=== PATIENT | male | born 1935 | race Caucasian/White ===

== ENCOUNTER 2021-06-18 15:03 | Emergency (ER) | payer OTHER, SELFPAY ==
--- NOTE | 2021-06-18 15:31 | DI.CT.S_ITS ---
PROCEDURE: CT HEAD/BRAIN WO CON INDICATIONS: confusion TECHNIQUE: Noncontrast 4.5 mm thick angled axial sections acquired from the foramen magnum to the vertex, with coronal and sagittal reformats. For radiation dose reduction, the following was used: automated exposure control, adjustment of mA and/or kV according to patient size. COMPARISON: None. FINDINGS: Image quality: Excellent. CSF spaces: Basal cisterns are patent. No extra-axial fluid collections. The ventricles are symmetric in size and shape. Brain: No acute intracranial hemorrhage or mass effect. A moderately-sized area of chronic encephalomalacia is seen in the right frontal lobe. Small areas of chronic encephalomalacia are seen in the right parietal and right occipital lobe posteriorly. There is cerebral volume loss for age, with resultant ventricular and sulcal prominence. There are periventricular and deep white matter chronic small vessel ischemic changes. There is intracranial internal carotid artery atherosclerosis. Skull and face: Calvarium and visualized facial bones appear intact, without suspicious lesions. Sinuses: Visualized sinuses and mastoids are clear. IMPRESSION: 1. No acute intracranial abnormality. 2. 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 3. Chronic microvascular ischemic changes and diffuse cerebral and cerebellar volume loss. Dictated by: Iván Grullon M.D. on 06/18/2021 at 15:48 Approved by: Iván Grullon M.D. on 06/18/2021 at 15:52
--- NOTE | 2021-06-18 17:17 | DI.RAD.S_ITS ---
PROCEDURE: XR CHEST 1V INDICATIONS: altered mental status TECHNIQUE: One view of the chest was acquired. COMPARISON: [facility], CT, CT HEAD/BRAIN WO CON, 06/18/2021, 15:38. FINDINGS: Surgical changes and devices: None. Lungs and pleura: Lungs are clear. No pleural effusions or pneumothorax. Mediastinum: There is moderate cardiomegaly. Atherosclerotic calcification of the aortic arch is noted. Bones and chest wall: No suspicious bony lesions. Overlying soft tissues appear unremarkable. IMPRESSION: Moderate cardiomegaly. Clear lungs. Dictated by: Anton Cutler M.D. on 06/18/2021 at 16:45 Approved by: Anton Cutler M.D. on 06/18/2021 at 16:46
[2021-06-18 17:36] VITALS: BP 159/74; PULSE 52; O2SAT 99
[2021-06-18 17:57] LABS: Add Manual Diff / Slide Review NO; Basophils Absolute Auto 0 /uL (0-100); Basophils Percent Auto 0.4 % (0-2); Eosinophils Absolute Auto 300 /uL (0-450); Eosinophils Percent Auto 4.6 % (2-4); Hemoglobin 13.4 g/dL (13.5-17.5); Lymphocytes Absolute Auto 1800 /uL (1100-4500); Mean Corpuscular HGB Conc 33.6 % (30-36); Mean Corpuscular Hemoglobin 32.4 PG (26-34); Mean Corpuscular Volume 96.3 fL (80-100); Monocytes Absolute Auto 600 /uL (0-900); Monocytes Percent Auto 9.4 % (3-14); Neutrophils Absolute Auto 3500 /uL (1500-7000); Neutrophils Percent Auto 56.6 % (50-75); Platelet Count 145 X10^3/uL (150-400); Red Blood Cell Count 4.15 X10^6/uL (4.5-5.9); Red Cell Distribution Width 14.6 % (11.6-14.8); White Blood Cell Count 6.1 X10^3/uL (4.5-11.0)
[2021-06-18 18:00] VITALS: BP 151/78; PULSE 54; RESP 15; O2SAT 100
[2021-06-18 18:17] LABS: Alanine Aminotransferase 36 IU/L (<50); Albumin 3.9 g/dL (3.5-5.0); Albumin Globulin Ratio 1.3 (1.0-2.8); Alkaline Phosphatase 63 U/L (38-126); Aspartate Aminotransferase 39 IU/L (17-59); BUN Creatinine Ratio 28.8 (6-22); Bilirubin Total 0.6 mg/dL (0.2-1.3); Blood Urea Nitrogen 23 mg/dL (9-20); Carbon Dioxide 32 mmol/L (22-32); Chloride 106 mmol/L (98-107); Estimated Glomerular Filt Rate > 60.0 mL/min (>60); Globulin 2.9 g/dL (1.7-4.1); Glucose 100 mg/dL (80-110); HEMOLYSIS < 15 (0-50); Potassium 4.2 mmol/L (3.4-5.1); Sodium 142 mmol/L (137-145); Total Protein 6.8 g/dL (6.3-8.2)
[2021-06-18 18:30] VITALS: BP 192/93; PULSE 68; RESP 24; O2SAT 99
[2021-06-18 18:36] LABS: Ammonia (NH3) < 9 umol/L (9-30)
--- NOTE | 2021-06-18 18:37 | ED_ITS ---
HPI - Neuro Symptoms/Deficit General Chief Complaint: Neuro Symptoms/Deficit Stated Complaint: states confusion Time Seen by Provider: 06/18/21 17:49 Source: patient Mode of arrival: Ambulatory Limitations: no limitations History of Present Illness HPI Narrative: Patient is an 86-year-old male with history of atrial fibrillation on Coumadin or pradaxa, digoxin, coronary artery disease, probable TIA presenting today with episode of confusion yesterday. He is here with his sister who states that he drove up yesterday from [place], and got lost. It was dust and dark and he got confused. The sister and her had to go find him and bring him to the house. She said this is very abnormal he has been to their house many times. He had no difficulty speaking no numbness tingling weakness. No chest pain pa lpitations fever chills. Today he is overall feeling better currently eating snacks that the sister brought in. However the sister is concerned that something is acute may have happened. On Anticoagulants: Yes (pradaxa) Related Data Previous Rx's Medication Instructions Recorded cephalexin 500 mg capsule 500 mg PO BID 7 Days #14 cap 06/18/21 Allergies Allergy/AdvReac Type Severity Reaction Status Date / Time No Known Drug Allergies Allergy Verified 06/18/21 19:36 Review of Systems Review of Systems Narrative: GENERAL: Denies chills, fatigue, malaise, fever, sweats, travel HEENT: Denies sinus pain, ear pain, sore throat, difficulty swallowing, neck pain RESPIRATORY: Denies dyspnea, cough, wheezing, hemoptysis, sputum. CARDIOVASCULAR: Denies chest pain, palpitations, orthopnea, edema GASTROINTESTINAL: Denies nausea, vomiting, abdominal pain, diarrhea, constipation, melena. : Denies dysuria, frequency, incontinence, hematuria, urinary retention, flank pain. MUSCULOSKELETAL: Denies weakness, joint pain, or bony pain SKIN: No rash, no erythema, no pruritus NEUROLOGIC: See HPI PSYCHIATRIC: No concerning psychosocial issues. 12 point review of systems is negative except for those stated above and HPI Hematologic/Lymphatic On Anticoagulants: Yes (pradaxa) Patient History Social History Smoking Status: Never smoker Smoking Status: Never smoker Substance Use Type: does not use Exam Initial Vital Signs Initial Vital Signs: Vital Signs Pulse Rate 52 L 06/18/21 17:36 Blood Pressure 159/74 H 06/18/21 17:36 Pulse Oximetry 99 11/24/21 17:36 GENERAL: Alert well-appearing 86-year-old male eating in no acute distress. HEENT: Head atraumatic,EOMI, pupils reactive, face symmetric, moist mucous membranes CARDIOVASCULAR: Regular rate and rhythm without murmurs, rubs or gallops. RESPIRATORY: Breath sounds equal bilaterally, no wheezes rales or rhonchi. ABDOMEN: Soft, nontender. Normoactive bowel sounds all 4 quadrants. No guar ding or rebound. EXTREMITIES: Normal range of motion, no clubbing or edema. Neurovascularly intact NEUROLOGICAL: Alert and oriented x4.Normal gait and speech. Cranial nerves II through XII grossly intact. Good [id number], good [id number], strength equal bilaterally, no dysarthria or aphasia, sensation in tact to soft touch bilaterally, no visual changes, no facial droop SKIN: Warm, dry, no laceration, no petechiae, no rashes or lesions. Scores NIH Stroke Scale Level of Conciousness: Alert, keenly responsive Ask month/age: Answers both questions correctly. Open/close eyes, close hand: Performs both tasks correctly Best gaze horizontal: Normal Visual fuentes: No visual loss Facial palsy: Normal symetrical movement Left arm drift: No drift for full 10 sec Right arm drift: No drift for full 10 sec Left leg drift: No drift for full 5 sec Right leg drift: No drift for full 5 sec Limb ataxia: Absent Sensory on face/arms/legs: Normal, no sensory loss Best language: No aphasia, normal Dysarthria: Normal Extinction or inattention: No abnormality Total NIH Stroke scale score: 0 Course Orders Ordered: ED Orders 06/18/21 17:17 XR chest 1V Stat EKG-12 Lead Stat 06/18/21 17:45 Complete Blood Count AUTO DIFF Stat Comprehensive Metabolic Panel Stat PTT [Partial Thromboplastin Time] Stat Prothrombin Time INR Stat Troponin & CK Cardiac Panel Stat 06/18/21 18:10 Ammonia (NH3) Stat 06/18/21 18:13 Urinalysis and Microscopic Stat Urine Culture Stat Urine Drug Screen, Rapid Stat 06/18/21 19:05 COVID19 -Nasal swab/Pre-Proc Stat Discontinued Medications Cefazolin Sodium (Cephalexin 250 Mg Prepack) 1 bottle MISC SEEINSTR ONE Stop: 06/18/21 19:33 Last Admin: 06/18/21 19:38 Dose: 2 cap Documented by: HAL Vital Signs Vital signs: Vital Signs - 8 hr 06/18/21 17:36 06/18/21 18:00 06/18/21 18:30 Pulse Rate 52 L 54 L 68 Respiratory Rate 15 24 Blood Pressure 159/74 H 151/78 H 192/93 H Pulse Oximetry 99 100 99 06/18/21 19:00 06/18/21 19:30 Pulse Rate 74 75 Respiratory Rate 13 28 H Blood Pressure 180/82 H 168/89 H Pulse Oximetry 99 98 MDM - Neuro Symptoms/Deficit Lab Data Result diagrams: 06/18/21 17:45 06/18/21 17:45 Labs: Lab Results 06/18/21 06/18/21 06/18/21 Range/Units 17:45 17:45 17:45 WBC 6.1 (4.5-11.0) X10^3/uL RBC 4.15 L (4.5-5.9) X10^6/uL Hgb 13.4 L (13.5-17.5) g/dL Hct 40.0 L (41-53) % MCV 96.3 (80-100) fL MCH 32.4 (26-34) PG MCHC 33.6 (30-36) % RDW 14.6 (11.6-14.8) % Plt Count 145 L (150-400) X10^3/uL Neut % (Auto) 56.6 (50-75) % Lymph % (Auto) 29.0 (25-40) % [place] % (Auto) 9.4 (3-14) % Eos % (Auto) 4.6 H (2-4) % Baso % (Auto) 0.4 (0-2) % Neut # (Auto) 3500 (4339-8749) /uL Lymph # (Auto) 1800 (1697-8449) /uL [place] # (Auto) 600 (0-900) /uL Eos # (Auto) 300 (0-450) /uL Baso # (Auto) 0 (0-100) /uL PT (10.1-12.7) SECONDS INR (0.9-1.3) APTT (26.4-36.2) SECONDS Sodium 142 (137-145) mmol/L Potassium 4.2 (3.4-5.1) mmol/L Chloride 106 (98-107) mmol/L Carbon Dioxide 32 (22-32) mmol/L BUN 23 H (9-20) mg/dL Creatinine 0.80 (0.66-1.25) mg/dL Estimated GFR > 60.0 (>60) mL/min BUN/Creatinine Ratio 28.8 H (6-22) Glucose 100 (80-110) mg/dL Calcium 9.0 (8.4-10.2) mg/dL Total Bilirubin 0.6 (0.2-1.3) mg/dL AST 39 (17-59) IU/L ALT 36 (<50) IU/L Alkaline Phosphatase 63 (38-126) U/L Ammonia (9-30) umol/L Total Creatine Kinase 184 H (55-170) U/L CK-MB (CK-2) 2.75 H (<2.37) ng/mL CK-MB (CK-2) Rel Index 1.5 (1.5-5.0) % Troponin I 0.017 (0.01-0.034) ng/mL Total Protein 6.8 (6.3-8.2) g/dL Albumin 3.9 (3.5-5.0) g/dL Globulin 2.9 (1.7-4.1) g/dL Albumin/Globulin Ratio 1.3 (1.0-2.8) Urine Color Urine Appearance Urine pH (4.5-8.0) Ur Specific [place] (1.000-1.035) Urine Protein (Negative) Urine Glucose (UA) (Negative) g/dL Urine Ketones (NEGATIVE) Urine Occult Blood (Negative) Urine Nitrate (Negative) Urine Bilirubin (NEGATIVE) Urine Urobilinogen (0.2) E.U./dL Ur Leukocyte Esterase (NEGATIVE) Urine RBC (0-5/HPF) Urine WBC (0-5/HPF) Urine Bacteria (None) Ur Culture Indicated? U Opiates 300ng/mL cut (Negative) Ur Oxycodone Screen (Negative) Urine Methadone Screen (Negative) Ur Barbiturates Screen (Negative) U Tricyclic Antidepress (Negative) Ur Phencyclidine Scrn (Negative) Ur Amphetamines Screen (Negative) U Methamphetamines Scrn (Negative) Ur MDMA Scrn (Ecstasy) (Negative) U Benzodiazepines Scrn (Negative) Urine Cocaine Screen (Negative) U Marijuana (THC) Screen (Negative) SARS-CoV-2 (PCR) (Negative) 06/18/21 06/18/21 06/18/21 Range/Units 17:45 18:10 18:13 WBC (4.5-11.0) X10^3/uL RBC (4.5-5.9) X10^6/uL Hgb (13.5-17.5) g/dL Hct (41-53) % MCV (80-100) fL MCH (26-34) PG MCHC (30-36) % RDW (11.6-14.8) % Plt Count (150-400) X10^3/uL Neut % (Auto) (50-75) % Lymph % (Auto) (25-40) % [place] % (Auto) (3-14) % Eos % (Auto) (2-4) % Baso % (Auto) (0-2) % Neut # (Auto) (2109-1138) /uL Lymph # (Auto) (8637-3925) /uL [place] # (Auto) (0-900) /uL Eos # (Auto) (0-450) /uL Baso # (Auto) (0-100) /uL PT 12.7 (10.1-12.7) SECONDS INR 1.1 (0.9-1.3) APTT 33 (26.4-36.2) SECONDS Sodium (137-145) mmol/L Potassium (3.4-5.1) mmol/L Chloride (98-107) mmol/L Carbon Dioxide (22-32) mmol/L BUN (9-20) mg/dL Creatinine (0.66-1.25) mg/dL Estimated GFR (>60) mL/min BUN/Creatinine Ratio (6-22) Glucose (80-110) mg/dL Calcium (8.4-10.2) mg/dL Total Bilirubin (0.2-1.3) mg/dL AST (17-59) IU/L ALT (<50) IU/L Alkaline Phosphatase (38-126) U/L Ammonia < 9 L (9-30) umol/L Total Creatine Kinase (55-170) U/L CK-MB (CK-2) (<2.37) ng/mL CK-MB (CK-2) Rel Index (1.5-5.0) % Troponin I (0.01-0.034) ng/mL Total Protein (6.3-8.2) g/dL Albumin (3.5-5.0) g/dL Globulin (1.7-4.1) g/dL Albumin/Globulin Ratio (1.0-2.8) Urine Color Urine Appearance Urine pH (4.5-8.0) Ur Specific [place] (1.000-1.035) Urine Protein (Negative) Urine Glucose (UA) (Negative) g/dL Urine Ketones (NEGATIVE) Urine Occult Blood (Negative) Urine Nitrate (Negative) Urine Bilirubin (NEGATIVE) Urine Urobilinogen (0.2) E.U./dL Ur Leukocyte Esterase (NEGATIVE) Urine RBC (0-5/HPF) Urine WBC (0-5/HPF) Urine Bacteria (None) Ur Culture Indicated? U Opiates 300ng/mL cut Negative (Negative) Ur Oxycodone Screen Negative (Negative) Urine Methadone Screen Negative (Negative) Ur Barbiturates Screen Negative (Negative) U Tricyclic Antidepress Negative (Negative) Ur Phencyclidine Scrn Negative (Negative) Ur Amphetamines Screen Negative (Negative) U Methamphetamines Scrn Negative (Negative) Ur MDMA Scrn (Ecstasy) Negative (Negative) U Benzodiazepines Scrn Negative (Negative) Urine Cocaine Screen Negative (Negative) U Marijuana (THC) Screen Negative (Negative) SARS-CoV-2 (PCR) (Negative) 06/18/21 06/18/21 Range/Units 18:13 19:05 WBC (4.5-11.0) X10^3/uL RBC (4.5-5.9) X10^6/uL Hgb (13.5-17.5) g/dL Hct (41-53) % MCV (80-100) fL MCH (26-34) PG MCHC (30-36) % RDW (11.6-14.8) % Plt Count (150-400) X10^3/uL Neut % (Auto) (50-75) % Lymph % (Auto) (25-40) % [place] % (Auto) (3-14) % Eos % (Auto) (2-4) % Baso % (Auto) (0-2) % Neut # (Auto) (4795-3589) /uL Lymph # (Auto) (6645-5875) /uL [place] # (Auto) (0-900) /uL Eos # (Auto) (0-450) /uL Baso # (Auto) (0-100) /uL PT (10.1-12.7) SECONDS INR (0.9-1.3) APTT (26.4-36.2) SECONDS Sodium (137-145) mmol/L Potassium (3.4-5.1) mmol/L Chloride (98-107) mmol/L Carbon Dioxide (22-32) mmol/L BUN (9-20) mg/dL Creatinine (0.66-1.25) mg/dL Estimated GFR (>60) mL/min BUN/Creatinine Ratio (6-22) Glucose (80-110) mg/dL Calcium (8.4-10.2) mg/dL Total Bilirubin (0.2-1.3) mg/dL AST (17-59) IU/L ALT (<50) IU/L Alkaline Phosphatase (38-126) U/L Ammonia (9-30) umol/L Total Creatine Kinase (55-170) U/L CK-MB (CK-2) (<2.37) ng/mL CK-MB (CK-2) Rel Index (1.5-5.0) % Troponin I (0.01-0.034) ng/mL Total Protein (6.3-8.2) g/dL Albumin (3.5-5.0) g/dL Globulin (1.7-4.1) g/dL Albumin/Globulin Ratio (1.0-2.8) Urine Color Yellow Urine Appearance Cloudy Urine pH 5.5 (4.5-8.0) Ur Specific [place] 1.020 (1.000-1.035) Urine Protein 1+ H (Negative) Urine Glucose (UA) Negative (Negative) g/dL Urine Ketones Negative (NEGATIVE) Urine Occult Blood Trace-lysed (Negative) Urine Nitrate Positive H (Negative) Urine Bilirubin Negative (NEGATIVE) Urine Urobilinogen 0.2 (0.2) E.U./dL Ur Leukocyte Esterase 3+ H (NEGATIVE) Urine RBC 0-1/hpf (0-5/HPF) Urine WBC >100/hpf H (0-5/HPF) Urine Bacteria Few (2-10) H (None) Ur Culture Indicated? Specimen cultured U Opiates 300ng/mL cut (Negative) Ur Oxycodone Screen (Negative) Urine Methadone Screen (Negative) Ur Barbiturates Screen (Negative) U Tricyclic Antidepress (Negative) Ur Phencyclidine Scrn (Negative) Ur Amphetamines Screen (Negative) U Methamphetamines Scrn (Negative) Ur MDMA Scrn (Ecstasy) (Negative) U Benzodiazepines Scrn (Negative) Urine Cocaine Screen (Negative) U Marijuana (THC) Screen (Negative) SARS-CoV-2 (PCR) Negative (Negative) Imaging Data CT scan - head: Radiologist's Impression: PROCEDURE:? CT HEAD/BRAIN WO CON ? INDICATIONS:? confusion ? TECHNIQUE:? Noncontrast 4.5 mm thick angled axial sections acquired from the foramen magnum to the vertex, with coronal and sagittal reformats.? For radiation dose reduction, the following was used:? automated exposure control, adjustment of mA and/or kV according to p atient size.? ? COMPARISON:? None. ? FINDINGS:? Image quality:? Excellent.? ? CSF spaces:? Basal cisterns are patent.? No extra-axial fluid collections.? The ventricles are symmetric in size and shape.? ? Brain:? No acute intracranial hemorrhage or mass effect.? A moderately-sized area of chronic encephalomalacia is seen in the right frontal lobe.? Small areas of chronic encephalomalacia are seen in the right parietal and right occipital lobe posteriorly.? There is cerebral volume loss for age, with resultant ventricular and sulcal prominence.? There are periventricular and deep white matter chronic small vessel ischemic changes.? There is intracranial internal carotid artery atherosclerosis.? ? Skull and face:? Calvarium and visualized facial bones appear intact, without suspicious lesions.? ? Sinuses:? Visualized sinuses and mastoids are clear.? ? IMPRESSION:? 1. No acute intracranial abnormality. 2. 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 3. Chronic microvascular ischemic changes and diffuse cerebral and cerebellar volume loss.? ? ? Dictated by: Iván Grullon M.D. on 06/18/2021 at 15:48 ? ? Chest x-ray: Radiologist's Impression: PROCEDURE:? XR CHEST 1V ? INDICATIONS:? altered mental status ? TECHNIQUE:? One view of the chest was acquired.? ? COMPARISON:? [facility], CT, CT HEAD/BRAIN WO CON, 06/18/2021, 15:38. ? FINDINGS:? ? Surgical changes and devices:? None.? ? Lungs and pleura:? Lungs are clear.? No pleural effusions or pneumothorax.? ? Mediastinum:? There is moderate cardiomegaly. Atherosclerotic calcification of the aortic arch is noted.? ? Bones and chest wall:? No suspicious bony lesions.? Overlying soft tissues appear unremarkable.? IMPRESSION:? Moderate cardiomegaly. ? Clear lungs. ? ? Dictated by: Anton Cutler M.D. on 06/18/2021 at 16:45 ECG Data Interpretation: Sinus rhythm rate 54 LA interval 1-32 QRS [address] changes Q-waves noted in lead 3 and AVF MDM Narrative Medical decision making narrative: Patient had some mild confusion and got lost driving while at nighttime in unfamiliar area, which like CTA or TIAS. He did not have any focal deficits and still does not. In fact he is overall feeling better. He was complaining of some brain fog. He Is found to have UTI with nitrates and bacteria in his urine, overall does not appear septic. At this time will start him on antibiotics. Blood work is overall reassuring. His clinical exam reassuring. Recommend outpatient treatment at this time. Discharge Plan Departure Patient Disposition: Home Clinical Impression: Acute UTI Instructions: DI for Urinary Tract Infection (UTI) Activity Restrictions/Additional Instructions: *You have been diagnosed with UTI *What to do: At this time I believe symptoms are caused from a bladder infection. *Continue to take medications as directed Keflex 500 mg twice a day for 7 days *Follow up with your primary care provider in 2-3 days *Return to ER if you should have increasing confusion, numbness tingling weakness, chest pain palpitations or any new, worsening or concerning symptoms Prescriptions: New cephalexin 500 mg capsule 500 mg PO BID 7 Days Qty: 14 0RF
[2021-06-18 18:45] LABS: INR 1.1 (0.9-1.3); Prothrombin Time 12.7 SECONDS (10.1-12.7)
[2021-06-18 18:47] LABS: PTT Partial Thromboplastin Tim 33 SECONDS (26.4-36.2)
--- NOTE | 2021-06-18 18:47 | PC.NURSE ---
pt reported that he was driving up to visit his sister for the holiday. states he got to [facility] and couldn't remember how to get to [employer]. said he ws a little confused.
[2021-06-18 19:00] VITALS: BP 180/82; PULSE 74; RESP 13; O2SAT 99
[2021-06-18 19:03] LABS: Creatine Kinase 184 U/L (55-170)
[2021-06-18 19:05] LABS: Appearance Urine UA CLOUDY; Bilirubin Urine UA NEGATIVE (NEGATIVE); Color Urine UA YELLOW; Glucose Urine UA NEGATIVE (Negative); Ketones Urine UA NEGATIVE (NEGATIVE); Leukocyte Esterase Urine UA 3+ (NEGATIVE); Nitrite Urine UA POSITIVE (Negative); Occult Blood Urine UA TRACE-LYSED (Negative); Protein Urine UA 1+ (Negative); Urobilinogen Urine UA 0.2 E.U./dL (0.2); pH Urine UA 5.5 (4.5-8.0)
[2021-06-18 19:16] LABS: Troponin I 0.017 ng/mL (0.01-0.034)
[2021-06-18 19:18] LABS: CKMB % Relative Index 1.5 % (1.5-5.0); Creatine Kinase MB 2.75 ng/mL (<2.37)
[2021-06-18 19:18] LABS: UR Morphine/Opiate cutoff 300 Negative (Negative); Ur Creatinine Normal (Normal); Ur Specific Gravity Normal (Normal); Urine Amphetamines Negative (Negative); Urine Barbiturates Negative (Negative); Urine Benzodiazepines Negative (Negative); Urine Cocaine Negative (Negative); Urine MDMA Negative (Negative); Urine Methadone Negative (Negative); Urine Methamphetamines Negative (Negative); Urine Oxycodone Negative (Negative); Urine Phencyclidine Negative (Negative); Urine Tetrahydrocannabinol Negative (Negative); Urine Tricyclic Antidepressant Negative (Negative); Urine pH Normal (Normal)
[2021-06-18 19:21] LABS: Bacteria Urine Few (2-10); Culture Indicated Urine Specimen Cultured; RBC Urine 0-1/HPF (0-5/HPF); WBC Urine >100/HPF (0-5/HPF)
[2021-06-18 19:30] VITALS: BP 168/89; PULSE 75; RESP 28; O2SAT 98
[2021-06-18] MEDS: cephALEXin 250 MG PREPACK 1 BOTTLE MISC (19:38)
[2021-06-18 19:43] LABS: COVID19 -Nasal RAPID Negative (Negative)
== END 2021-06-18 19:47 | disposition home or self-care (01) ==
PROVIDERS: Emergency Medicine; Emergency Provider Emergency Medicine
DX: N39.0 Urinary tract infection, site not specified (principal); R41.0 Disorientation, unspecified; R03.0 Elevated blood-pressure reading, without diagnosis of hypertension; Z20.822 Contact with and (suspected) exposure to COVID-19; Z79.01 Long term (current) use of anticoagulants
CPT/HCPCS: 36415; 70450; 71045; 80053; 80305; 81001; 82140; 82550; 82553; 84484; 85025; 85610; 85730; 87077; 87086; 87186; 87635; 93005; 99284; C9803

== ENCOUNTER 2022-12-05 09:42 | Emergency (ER) | payer OTHER, SELFPAY ==
[2022-12-05 09:46] VITALS: BP 137/64; PULSE 57; RESP 15; TEMP 36.2; O2SAT 98; BMI 30.7
--- NOTE | 2022-12-05 10:25 | ED.EYEPROB ---
HPI - Eye Problem General Chief complaint: Eye Problems Stated complaint: lt eye blurry vision, drainage, pain Time Seen by Provider: 12/05/22 10:24 Source: patient Mode of arrival: Wheelchair Limitations: no limitations History of Present Illness HPI Narrative: This is an 87-year-old male with history of atrial fibrillation on anticoagulation, coronary artery disease and complaint of left eye swelling, discharge and discomfort. Patient states he would a little irritation yesterday he woke up this morning with his left eye having some swelling some redness, irritation he states it is uncomfortable. No pain with in the eye itself or with movement of the eye. He is got some drainage that he describes as clear but persistent. Notes some swelling of the upper and lower lids some redness injection. Patient states vision is slightly blurry but about the same. He wears readers for glasses. 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 He denies any contacts. He states no prior eye surgeries or interventions. He has not had similar symptoms in the past. He denies any recent trauma, no wood working, metal working or other activities that would likely cause a foreign body. He does not recall getting anything in his eye. Patient states he does not use any eyedrops [id number]. No known drug allergies. Denies any tobacco, alcohol or illicit. Related Data Previous Rx's Medication Instructions Recorded ofloxacin 0.3 % eye drops 2 drp EYE-LEFT Q4HRWA 10 days #5 mL 12/05/22 Allergies Allergy/AdvReac Type Severity Reaction Status Date / Time No Known Drug Allergies Allergy Verified 12/05/22 09:50 Review of Systems Review of Systems ROS Unobtainable: All systems reviewed & are unremarkable except as noted in HPI and below Patient History Social History Smoking Status: Never smoker Smoking Status: Never smoker Substance Use Type: does not use Exam Narrative Exam Narrative: GEN: well nourished, well appearing male, alert and oriented, patient appears to be in mild distress. HEENT: Atraumatic, pupils are equal round reactive to light, extraocular movements are intact, patient has some photophobia on the left nares are clear, there is no conjunctival pallor. Throat is clear without any exudates, erythema, tonsillar enlargement or uvular deviation Visual acuity: right [20/40], left [20/25] without correction. General: no globe trauma Eyelids: normal inspection on right, patient has significant swelling of lower lid with some mild erythema. everted for exam on bilaterally with no foreign object. Conjunctiva/Sclera: normal inspection the right, on the left patient has significant conjunctival injection of the lower lid as well as some mild injection of the sclera throughout. Corneas: normal inspection, examined with fluroscein on left, patient has uptake from the 5 o'clock to 7 o'clock position appears to have some ulceration was not appreciated without fluorescein. Is wider more of a streak, no dendritic lesion. Patient has tearing of left eye. EOM: intact, no palsy/entrapment Pupils: PERRL, normal accomadation, pupil normal Anterior Chambers: normal inspection, no hypema Posterior: Funduscopic was quite difficult. HEART: Regular rate and rhythm without murmur, clicks, rubs. LUNGS:Lungs clear to auscultation, no wheezes, rales, crackles, chest moves symmetrically ABD:bowel sounds normal, soft, non-tender, no guarding, rebound, rigidity, no masses noted, no hepatosplenomegaly MSCL: Full range of motion, normal gait NEURO:CN 2-12 intact, sensation normal SKIN: No other rashes, lesions or skin changes appreciated. Initial Vital Signs Initial Vital Signs: Vital Signs Temperature 97.2 F L 12/05/22 09:46 Pulse Rate 57 L 12/05/22 09:46 Respiratory Rate 15 12/05/22 09:46 Blood Pressure 137/64 12/05/22 09:46 Pulse Oximetry 98 12/05/22 09:46 Oxygen Delivery Method Room Air 12/05/22 09:46 Course Orders Ordered: Discontinued Medications Fluorescein Sodium (Fluorescein 1 Mg Strip) 1 mg EYE-BOTH NOW ONE Stop: 12/05/22 10:34 Last Admin: 12/05/22 10:37 Dose: 1 mg Documented By: DEBBIE Proparacaine HCl (Proparacaine 0.5% Ophth Cynthia) 1 drops EYE-BOTH NOW ONE Stop: 12/05/22 10:34 Last Admin: 12/05/22 10:37 Dose: 1 1000units Documented By: DEBBIE Vital Signs Vital signs: Vital Signs - 8 hr 12/05/22 09:46 12/05/22 11:09 Temperature 97.2 F L Pulse Rate 57 L 60 Respiratory Rate 15 18 Blood Pressure 137/64 135/60 Pulse Oximetry 98 97 Oxygen Delivery Method Room Air Room Air MDM - Eye Problem MDM Narrative Medical decision making narrative: This is an 87-year-old male with what appears to be more of a corneal ulceration than abrasion, conjunctivitis with irritation but particularly of the conjunctiva more than the sclera. Swollen in the left eye no foreign bodies appreciated uptake does not appear dendritic, is wider than a abrasion and seems to be little bit deeper. Patient started on antibiotic eyedrops, return precautions and referral for Ophthalmology to be seen 1st thing Wednesday morning there is no Ophthalmology available unless patient were to be trans offered to [facility] locally. Patient has minimal change to vision on the left and is felt appropriate for return precautions through the weekend until he can be seen 1st thing Wednesday. Discussed signs and symptoms and reasons to return. All questions answered. Discharge Plan Departure Patient Disposition: Home Clinical Impression: Corneal ulcer, Conjunctivitis Instructions: DI for Corneal Ulcer Activity Restrictions/Additional Instructions: Follow-up with ophthalmology on Wednesday, call the office 1st thing in the morning and let them the front office know the emergency department would like you to be evaluated for corneal ulcer. Use antibiotic eye drops 1-2 drops to the left eye every 4 hours while awake for a total of at least 4 times daily x 10 days. You may take Tylenol up to a 1000 mg every 6 hours for pain. You may use cool compresses to the affected area as needed. Do not reuse any wash cloths or tissues that you wiped your face but wash these after use. Prescription for antibiotic eyedrops sent to [facility] in [place]. Please return for rapidly worsening pain, increasing swelling, redness, worsening vision change or other new or concerning changes. Prescriptions: New ofloxacin 0.3 % drops 2 drp EYE-LEFT Q4HRWA 10 Days Qty: 5 0RF Referrals: Barry Barber MD [Physician] - Stand Alone Forms: Patient Portal/API
[2022-12-05] MEDS: FLUORESCEIN 1 MG STRIP EYE-BOTH (10:37)
[2022-12-05] MEDS: PROPARACAINE 0.5% OPHTH SOL 1 DROPS EYE-BOTH (10:37)
[2022-12-05 11:09] VITALS: BP 135/60; PULSE 60; RESP 18; O2SAT 97
== END 2022-12-05 11:12 | disposition home or self-care (01) ==
PROVIDERS: Emergency Provider Emergency Medicine
DX: H16.002 Unspecified corneal ulcer, left eye (principal); H10.9 Unspecified conjunctivitis
CPT/HCPCS: 99282

== ENCOUNTER → 2023-02-08 15:40 | Outpatient (CLI) | payer OTHER, MEDICARE, SELFPAY ==
[2023-02-08 16:15] LABS: Add Manual Diff / Slide Review NO; Basophils Absolute Auto 0 /uL (0-100); Basophils Percent Auto 0.4 % (0-2); Eosinophils Absolute Auto 300 /uL (0-450); Eosinophils Percent Auto 5.4 % (2-4); Hemoglobin 13.4 g/dL (13.5-17.5); Lymphocytes Absolute Auto 1900 /uL (1100-4500); Lymphocytes Percent Auto 30.3 % (25-40); Mean Corpuscular HGB Conc 34.2 % (30-36); Mean Corpuscular Hemoglobin 32.7 PG (26-34); Mean Corpuscular Volume 95.5 fL (80-100); Monocytes Absolute Auto 600 /uL (0-900); Monocytes Percent Auto 9.4 % (3-14); Neutrophils Absolute Auto 3400 /uL (1500-7000); Neutrophils Percent Auto 54.5 % (50-75); Platelet Count 199 X10^3/uL (150-400); Red Blood Cell Count 4.09 X10^6/uL (4.5-5.9); Red Cell Distribution Width 15.3 % (11.6-14.8); White Blood Cell Count 6.2 X10^3/uL (4.5-11.0)
[2023-02-08 16:31] LABS: Alanine Aminotransferase 25 IU/L (<50); Albumin 3.7 g/dL (3.5-5.0); Albumin Globulin Ratio 1.2 (1.0-2.8); Alkaline Phosphatase 116 U/L (38-126); Aspartate Aminotransferase 28 IU/L (17-59); BUN Creatinine Ratio 20.2 (6-22); Bilirubin Total 0.5 mg/dL (0.2-1.3); Blood Urea Nitrogen 20 mg/dL (9-20); Calcium 8.7 mg/dL (8.4-10.2); Carbon Dioxide 29 mmol/L (22-32); Chloride 102 mmol/L (98-107); Cholesterol 209 mg/dL (140-199); Estimated Glomerular Filt Rate > 60 mL/min (>60); Globulin 3.2 g/dL (1.7-4.1); Glucose 102 mg/dL (80-110); HDL Cholesterol 61 mg/dL (40-60); HEMOLYSIS < 15 (0-50); LDL Cholesterol Calculated 123 mg/dL (<100); Potassium 4.6 mmol/L (3.4-5.1); Sodium 138 mmol/L (137-145); Total Protein 6.9 g/dL (6.3-8.2); Triglycerides 126 mg/dL (35-150)
[2023-02-08 17:46] LABS: TSH w/ Reflex to FT4 8.47 uIU/mL (0.47-4.68)
[2023-02-08 18:22] LABS: Free T4, Direct Thyroxine 1.31 ng/dL (0.78-2.19)
== END ==
PROVIDERS: PCP Family Medicine; Referring Provider Family Medicine; Visit Provider Family Medicine
DX: E03.9 Hypothyroidism, unspecified; I10 Essential (primary) hypertension; I46.9 Cardiac arrest, cause unspecified; I63.9 Cerebral infarction, unspecified; J44.9 Chronic obstructive pulmonary disease, unspecified; Z95.810 Presence of automatic (implantable) cardiac defibrillator; D63.8 Anemia in other chronic diseases classified elsewhere
CPT/HCPCS: 36415; 80053; 80061; 84439; 84443; 85025

== ENCOUNTER → 2023-04-27 11:36 | Outpatient (CLI) | payer OTHER, SELFPAY ==
[2023-04-27 12:49] LABS: TSH w/ Reflex to FT4 9.32 uIU/mL (0.47-4.68)
[2023-04-27 13:17] LABS: Free T4, Direct Thyroxine 1.31 ng/dL (0.78-2.19)
== END ==
PROVIDERS: PCP Family Medicine; Referring Provider Family Medicine; Visit Provider Family Medicine
DX: E03.9 Hypothyroidism, unspecified (principal)
CPT/HCPCS: 36415; 84439; 84443

== ENCOUNTER → 2023-05-19 14:47 | Outpatient (CLI) | payer OTHER, SELFPAY ==
--- NOTE | 2023-05-19 14:51 | DI.RAD.S_ITS ---
PROCEDURE: XR TOE LT MIN 2V INDICATIONS: Left toe injury TECHNIQUE: 3 views of the 1st toe(s) acquired. COMPARISON: None. FINDINGS: Bones: There is a nondisplaced fracture involving the lateral aspect of the base of the 1st distal phalanx. No suspicious bony lesions. Soft tissues: No suspicious soft tissue densities. IMPRESSION: Nondisplaced fracture at the base of the 1st distal phalanx. Dictated by: Radha Mcguire M.D. on 05/19/2023 at 17:15 Approved by: Radha Mcguire M.D. on 05/19/2023 at 17:17
== END ==
PROVIDERS: PCP Family Medicine; Referring Provider Nurse Practitioner Family; Visit Provider Nurse Practitioner Family
DX: S92.425A Nondisplaced fracture of distal phalanx of left great toe, initial encounter for closed fracture (principal); M79.675 Pain in left toe(s); X58.XXXA Exposure to other specified factors, initial encounter
CPT/HCPCS: 73660

== ENCOUNTER → 2023-07-13 16:18 | Outpatient (CLI) | payer OTHER, SELFPAY ==
[2023-07-13 17:35] LABS: Alanine Aminotransferase 30 IU/L (<50); Albumin 3.6 g/dL (3.5-5.0); Albumin Globulin Ratio 1.1 (1.0-2.8); Alkaline Phosphatase 92 U/L (38-126); Aspartate Aminotransferase 33 IU/L (17-59); BUN Creatinine Ratio 25.9 (6-22); Bilirubin Total 0.6 mg/dL (0.2-1.3); Blood Urea Nitrogen 22 mg/dL (9-20); Calcium 9.2 mg/dL (8.4-10.2); Carbon Dioxide 27 mmol/L (22-32); Chloride 105 mmol/L (98-107); Estimated Glomerular Filt Rate > 60 mL/min (>60); Globulin 3.2 g/dL (1.7-4.1); Glucose 99 mg/dL (80-110); HEMOLYSIS < 15 (0-50); Potassium 4.4 mmol/L (3.4-5.1); Sodium 137 mmol/L (137-145); Total Protein 6.8 g/dL (6.3-8.2)
[2023-07-13 17:39] LABS: NT-proBNP (BNP-Adult 18+) 1030 pg/mL (<450)
[2023-07-13 18:03] LABS: TSH w/ Reflex to FT4 6.64 uIU/mL (0.47-4.68)
[2023-07-13 18:32] LABS: Free T4, Direct Thyroxine 1.13 ng/dL (0.78-2.19)
== END ==
PROVIDERS: PCP Family Medicine; Referring Provider Nurse Practitioner; Visit Provider Nurse Practitioner
DX: I50.23 Acute on chronic systolic (congestive) heart failure (principal); E03.9 Hypothyroidism, unspecified; I25.5 Ischemic cardiomyopathy
CPT/HCPCS: 36415; 80053; 83880; 84439; 84443

== ENCOUNTER → 2023-07-14 13:12 | Outpatient (ROUT) | payer OTHER, SELFPAY ==
[2023-07-14 13:50] LABS: Alanine Aminotransferase 31 IU/L (<50); Albumin 3.6 g/dL (3.5-5.0); Albumin Globulin Ratio 1.1 (1.0-2.8); Alkaline Phosphatase 93 U/L (38-126); Aspartate Aminotransferase 35 IU/L (17-59); BUN Creatinine Ratio 21.8 (6-22); Bilirubin Total 0.6 mg/dL (0.2-1.3); Blood Urea Nitrogen 22 mg/dL (9-20); Calcium 9.2 mg/dL (8.4-10.2); Carbon Dioxide 28 mmol/L (22-32); Chloride 104 mmol/L (98-107); Estimated Glomerular Filt Rate > 60 mL/min (>60); Globulin 3.2 g/dL (1.7-4.1); Glucose 96 mg/dL (80-110); HEMOLYSIS < 15 (0-50); Potassium 4.5 mmol/L (3.4-5.1); Sodium 138 mmol/L (137-145); Total Protein 6.8 g/dL (6.3-8.2)
[2023-07-14 13:57] LABS: NT-proBNP (BNP-Adult 18+) 1060 pg/mL (<450)
== END ==
PROVIDERS: PCP Family Medicine; Visit Provider Nurse Practitioner
DX: I50.23 Acute on chronic systolic (congestive) heart failure (principal); I25.5 Ischemic cardiomyopathy
CPT/HCPCS: 36415; 80053; 83880

== ENCOUNTER → 2023-08-31 10:24 | Outpatient (CLI) | payer OTHER, SELFPAY ==
[2023-08-31 12:35] LABS: BUN Creatinine Ratio 25.9 (6-22); Blood Urea Nitrogen 22 mg/dL (9-20); Calcium 9.2 mg/dL (8.4-10.2); Carbon Dioxide 34 mmol/L (22-32); Chloride 95 mmol/L (98-107); Estimated Glomerular Filt Rate > 60 mL/min (>60); Glucose 94 mg/dL (80-110); HEMOLYSIS < 15 (0-50); Potassium 3.4 mmol/L (3.4-5.1); Sodium 135 mmol/L (137-145)
== END ==
LOC: LAB 10:30
PROVIDERS: PCP Family Medicine; Referring Provider Family Medicine; Visit Provider Family Medicine
DX: I25.5 Ischemic cardiomyopathy (principal); I50.22 Chronic systolic (congestive) heart failure
CPT/HCPCS: 36415; 80048

== ENCOUNTER → 2023-11-02 09:00 | Outpatient (CLI) | payer OTHER, SELFPAY | LOC: WC 09:03 | PROVIDERS: PCP Family Medicine; Referring Provider Family Medicine; Visit Provider Surgery | DX: L97.311 Non-pressure chronic ulcer of right ankle limited to breakdown of skin (principal); I87.2 Venous insufficiency (chronic) (peripheral); R60.0 Localized edema; L53.9 Erythematous condition, unspecified; I50.9 Heart failure, unspecified; I25.10 Atherosclerotic heart disease of native coronary artery without angina pectoris; Z87.891 Personal history of nicotine dependence; I42.9 Cardiomyopathy, unspecified | CPT/HCPCS: 11042; 99203; 99213 ==

== ENCOUNTER → 2023-11-08 10:18 | Outpatient (CLI) | payer OTHER, SELFPAY | LOC: WC 10:19 | PROVIDERS: PCP Family Medicine; Referring Provider Family Medicine; Visit Provider Surgery | DX: L97.822 Non-pressure chronic ulcer of other part of left lower leg with fat layer exposed (principal); I87.2 Venous insufficiency (chronic) (peripheral); R60.0 Localized edema; L53.9 Erythematous condition, unspecified; I50.9 Heart failure, unspecified; I42.9 Cardiomyopathy, unspecified | CPT/HCPCS: 11042; 99213 ==

== ENCOUNTER → 2023-11-11 14:07 | Outpatient (CLI) | payer OTHER, SELFPAY | LOC: WC 14:08 | PROVIDERS: PCP Family Medicine; Referring Provider Family Medicine; Visit Provider Surgery | DX: L97.822 Non-pressure chronic ulcer of other part of left lower leg with fat layer exposed (principal); I87.2 Venous insufficiency (chronic) (peripheral); R60.0 Localized edema; L02.31 Cutaneous abscess of buttock; I50.9 Heart failure, unspecified; I42.9 Cardiomyopathy, unspecified | CPT/HCPCS: 10060; 99213 ==

== ENCOUNTER → 2023-11-16 08:31 | Outpatient (CLI) | payer OTHER, SELFPAY | LOC: WC 08:33 | PROVIDERS: PCP Family Medicine; Referring Provider Family Medicine; Visit Provider Surgery | DX: L97.822 Non-pressure chronic ulcer of other part of left lower leg with fat layer exposed (principal); I87.2 Venous insufficiency (chronic) (peripheral); R60.0 Localized edema; L02.31 Cutaneous abscess of buttock; R23.3 Spontaneous ecchymoses; I50.9 Heart failure, unspecified; I42.9 Cardiomyopathy, unspecified | CPT/HCPCS: 11042; 97602 ==

== ENCOUNTER → 2023-11-18 07:50 | Outpatient (CLI) | payer OTHER, SELFPAY ==
--- NOTE | 2023-11-18 07:50 | DI.US.S_ITS ---
PROCEDURE: US ARTERIAL DUPLEX LE BI INDICATIONS: Ulcers of both lower extremities TECHNIQUE: Color and pulse Doppler interrogation was performed of both lower extremity arterial systems, with image documentation. COMPARISON: None. FINDINGS: Cardiac arrhythmia present. Evaluation is limited secondary to bilateral seating wounds with bandages. Right lower extremity: Common femoral artery: 113 cm/sec, with triphasic flow. Deep femoral artery: 61 cm/sec, with triphasic flow. Proximal superficial femoral artery: 85 cm/sec, with triphasic flow. Mid superficial femoral artery: 102 cm/sec, with triphasic flow. Distal superficial femoral artery: 82 cm/sec, with triphasic/biphasic flow. Popliteal artery: 59 cm/sec, with triphasic flow. Posterior tibial artery: 124 cm/sec, with biphasic (above baseline) flow. Anterior tibial artery/dorsalis pedis: 34 cm/sec, with monophasic flow. Cifuentes-scale imaging description: Scattered atherosclerotic plaque. Left lower extremity: Common femoral artery: 89 cm/sec, with triphasic flow. Deep femoral artery: 67 cm/sec, with triphasic flow. Proximal superficial femoral artery: 94 cm/sec, with triphasic flow. Mid superficial femoral artery: 118 cm/sec, with triphasic flow. Distal superficial femoral artery: 84 cm/sec, with triphasic/biphasic flow. Popliteal artery: 77 cm/sec, with monophasic flow. Posterior tibial artery 161 cm/sec, with weak biphasic/monophasic flow. Anterior tibial artery/dorsalis pedis: 36 cm/sec, with weak biphasic/monophasic flow. Cifuentes-scale imaging description: Scattered atherosclerotic plaque. IMPRESSION: Evaluation is limited secondary to bilateral seating wounds with bandages. 1. Right lower extremity MINH/dorsalis pedis demonstrates monophasic flow. Remainder of the arterial vasculature is multiphasic with no velocity shift to suggest hemodynamically significant stenosis. 2. Left lower extremity popliteal artery and below the knee vasculature demonstrates weak biphasic/monophasic flow. Above the knee vasculature demonstrates multiphasic waveforms with no velocity shift to suggest hemodynamically significant stenosis.. 3. Cardiac arrhythmia present. Correlate with EKG. Dictated by: Vik Macdonald M.D. on 11/18/2023 at 10:44 Approved by: Vik Macdonald M.D. on 11/18/2023 at 10:51
== END ==
LOC: US 07:50
PROVIDERS: PCP Family Medicine; Referring Provider Surgery; Visit Provider Surgery
DX: L97.919 Non-pressure chronic ulcer of unspecified part of right lower leg with unspecified severity (principal); L97.929 Non-pressure chronic ulcer of unspecified part of left lower leg with unspecified severity; I49.9 Cardiac arrhythmia, unspecified
CPT/HCPCS: 93925

== ENCOUNTER → 2023-11-22 12:50 | Outpatient (CLI) | payer OTHER, SELFPAY | PROVIDERS: PCP Family Medicine; Referring Provider Family Medicine; Visit Provider Surgery | DX: L97.822 Non-pressure chronic ulcer of other part of left lower leg with fat layer exposed (principal); I87.2 Venous insufficiency (chronic) (peripheral); R60.0 Localized edema; L02.31 Cutaneous abscess of buttock; R23.3 Spontaneous ecchymoses; I50.9 Heart failure, unspecified; I25.10 Atherosclerotic heart disease of native coronary artery without angina pectoris; Z87.891 Personal history of nicotine dependence; I42.9 Cardiomyopathy, unspecified | CPT/HCPCS: 99213 ==

== ENCOUNTER → 2023-11-29 11:58 | Outpatient (CLI) | payer OTHER, SELFPAY | LOC: WC 11:59 | PROVIDERS: PCP Family Medicine; Referring Provider Family Medicine; Visit Provider Surgery | DX: L02.31 Cutaneous abscess of buttock (principal); R60.0 Localized edema; I73.9 Peripheral vascular disease, unspecified; I50.9 Heart failure, unspecified; I25.10 Atherosclerotic heart disease of native coronary artery without angina pectoris; Z95.0 Presence of cardiac pacemaker | CPT/HCPCS: 99213 ==

== ENCOUNTER → 2023-12-14 13:15 | Outpatient (CLI) | payer OTHER, SELFPAY | LOC: WC 13:21 | PROVIDERS: PCP Family Medicine; Referring Provider Family Medicine; Visit Provider Surgery | DX: L97.821 Non-pressure chronic ulcer of other part of left lower leg limited to breakdown of skin (principal); I87.2 Venous insufficiency (chronic) (peripheral); R60.0 Localized edema; L02.31 Cutaneous abscess of buttock; I50.9 Heart failure, unspecified; I42.9 Cardiomyopathy, unspecified | CPT/HCPCS: 99213; 99214 ==

== ENCOUNTER → 2023-12-27 10:18 | Outpatient (CLI) | payer OTHER, SELFPAY ==
[2023-12-27 11:29] LABS: Alanine Aminotransferase 33 IU/L (<50); Albumin 3.4 g/dL (3.5-5.0); Albumin Globulin Ratio 1.1 (1.0-2.8); Alkaline Phosphatase 95 U/L (38-126); Aspartate Aminotransferase 30 IU/L (17-59); BUN Creatinine Ratio 25.9 (6-22); Bilirubin Total 0.6 mg/dL (0.2-1.3); Blood Urea Nitrogen 30 mg/dL (9-20); Calcium 8.4 mg/dL (8.4-10.2); Carbon Dioxide 33 mmol/L (22-32); Chloride 101 mmol/L (98-107); Estimated Glomerular Filt Rate > 60 mL/min (>60); Glucose 146 mg/dL (80-110); HEMOLYSIS < 15 (0-50); Potassium 3.1 mmol/L (3.4-5.1); Sodium 137 mmol/L (137-145); Total Protein 6.4 g/dL (6.3-8.2)
== END ==
PROVIDERS: PCP Family Medicine; Referring Provider Family Medicine; Visit Provider Family Medicine
DX: I42.9 Cardiomyopathy, unspecified (principal); I10 Essential (primary) hypertension; R60.0 Localized edema; L02.31 Cutaneous abscess of buttock; R23.3 Spontaneous ecchymoses; I50.9 Heart failure, unspecified; I25.10 Atherosclerotic heart disease of native coronary artery without angina pectoris
CPT/HCPCS: 36415; 80053; 99213

== ENCOUNTER → 2023-12-27 10:52 | Outpatient (CLI) | payer OTHER, SELFPAY | PROVIDERS: PCP Family Medicine; Referring Provider Family Medicine; Visit Provider Surgery | DX: L02.31 Cutaneous abscess of buttock (principal); R23.3 Spontaneous ecchymoses; R60.0 Localized edema; I50.9 Heart failure, unspecified; I25.10 Atherosclerotic heart disease of native coronary artery without angina pectoris | CPT/HCPCS: 99213 ==

== ENCOUNTER → 2024-01-06 11:04 | Outpatient (ROUT) | payer OTHER, SELFPAY ==
[2024-01-06 13:21] LABS: Blood Urea Nitrogen 55 mg/dL (9-20); Calcium 8.7 mg/dL (8.4-10.2); Carbon Dioxide 36 mmol/L (22-32); Chloride 93 mmol/L (98-107); Estimated Glomerular Filt Rate 43 mL/min (>60); Glucose 190 mg/dL (80-110); HEMOLYSIS < 15 (0-50); Sodium 136 mmol/L (137-145)
[2024-01-06 13:31] LABS: NT-proBNP (BNP-Adult 18+) 842 pg/mL (<450)
== END ==
PROVIDERS: PCP Family Medicine; Visit Provider Nurse Practitioner
DX: C22.0 Liver cell carcinoma (principal)
CPT/HCPCS: 36415; 80048; 83880

== ENCOUNTER → 2024-01-10 09:38 | Outpatient (CLI) | payer OTHER, SELFPAY | LOC: WC 09:39 | PROVIDERS: PCP Family Medicine; Referring Provider Family Medicine; Visit Provider Surgery | DX: L02.31 Cutaneous abscess of buttock (principal); R60.0 Localized edema; R23.3 Spontaneous ecchymoses; I50.9 Heart failure, unspecified | CPT/HCPCS: 10060 ==

== ENCOUNTER → 2024-01-17 10:12 | Outpatient (CLI) | payer OTHER, SELFPAY | PROVIDERS: PCP Family Medicine; Referring Provider Family Medicine; Visit Provider Surgery | DX: L02.31 Cutaneous abscess of buttock (principal); I87.2 Venous insufficiency (chronic) (peripheral); R60.0 Localized edema | CPT/HCPCS: 99213 ==

== ENCOUNTER → 2024-01-18 16:01 | Outpatient (CLI) | payer OTHER, SELFPAY ==
[2024-01-18 19:17] LABS: TSH w/ Reflex to FT4 6.49 uIU/mL (0.47-4.68)
[2024-01-18 19:43] LABS: Free T4, Direct Thyroxine 1.42 ng/dL (0.78-2.19)
== END ==
PROVIDERS: PCP Family Medicine; Referring Provider Family Medicine; Visit Provider Family Medicine
DX: R60.0 Localized edema (principal); E03.9 Hypothyroidism, unspecified; I87.2 Venous insufficiency (chronic) (peripheral); I42.9 Cardiomyopathy, unspecified
CPT/HCPCS: 36415; 84439; 84443

== ENCOUNTER → 2024-01-19 06:16 | Outpatient (ROUT) | payer OTHER, SELFPAY ==
[2024-01-19 08:18] LABS: Blood Urea Nitrogen 68 mg/dL (9-20); Calcium 8.7 mg/dL (8.4-10.2); Carbon Dioxide 37 mmol/L (22-32); Chloride 95 mmol/L (98-107); Estimated Glomerular Filt Rate 39 mL/min (>60); Glucose 126 mg/dL (80-110); HEMOLYSIS < 15 (0-50); Potassium 3.2 mmol/L (3.4-5.1); Sodium 133 mmol/L (137-145)
[2024-01-19 08:27] LABS: NT-proBNP (BNP-Adult 18+) 1100 pg/mL (<450)
== END ==
PROVIDERS: PCP Family Medicine; Visit Provider Nurse Practitioner
DX: I50.23 Acute on chronic systolic (congestive) heart failure (principal); I25.5 Ischemic cardiomyopathy
CPT/HCPCS: 36415; 80048; 83880

== ENCOUNTER → 2024-01-31 10:07 | Outpatient (CLI) | payer OTHER, SELFPAY | PROVIDERS: PCP Family Medicine; Referring Provider Family Medicine; Visit Provider Surgery | DX: L02.31 Cutaneous abscess of buttock (principal); R60.0 Localized edema; I50.9 Heart failure, unspecified; I25.10 Atherosclerotic heart disease of native coronary artery without angina pectoris | CPT/HCPCS: 99213 ==

== ENCOUNTER → 2024-02-17 13:49 | Outpatient (CLI) | payer OTHER, SELFPAY | LOC: WC 13:50 | PROVIDERS: PCP Family Medicine; Referring Provider Family Medicine; Visit Provider Nurse Practitioner Family | DX: L02.31 Cutaneous abscess of buttock (principal); R60.0 Localized edema; I50.9 Heart failure, unspecified; Z79.01 Long term (current) use of anticoagulants | CPT/HCPCS: 11042; 99213 ==

== ENCOUNTER → 2024-02-22 11:45 | Outpatient (CLI) | payer OTHER, SELFPAY ==
[2024-02-22 13:45] LABS: BUN Creatinine Ratio 39.9 (6-22); Blood Urea Nitrogen 67 mg/dL (9-20); Calcium 8.6 mg/dL (8.4-10.2); Carbon Dioxide 29 mmol/L (22-32); Chloride 96 mmol/L (98-107); Estimated Glomerular Filt Rate 39 mL/min (>60); Glucose 113 mg/dL (80-110); HEMOLYSIS < 15 (0-50); Potassium 3.8 mmol/L (3.4-5.1); Sodium 134 mmol/L (137-145)
== END ==
PROVIDERS: PCP Family Medicine; Referring Provider Family Medicine; Visit Provider Family Medicine
DX: I50.20 Unspecified systolic (congestive) heart failure (principal)
CPT/HCPCS: 36415; 80048

== ENCOUNTER → 2024-03-02 11:19 | Outpatient (CLI) | payer OTHER, SELFPAY | LOC: WC 11:20 | PROVIDERS: PCP Family Medicine; Referring Provider Family Medicine; Visit Provider Surgery | DX: L02.31 Cutaneous abscess of buttock (principal); R60.0 Localized edema; I50.9 Heart failure, unspecified; I42.9 Cardiomyopathy, unspecified; Z79.01 Long term (current) use of anticoagulants | CPT/HCPCS: 99213 ==

== ENCOUNTER → 2024-03-08 11:06 | Outpatient (CLI) | payer OTHER, SELFPAY | LOC: WC 11:07 | PROVIDERS: PCP Family Medicine; Referring Provider Family Medicine; Visit Provider Surgery | DX: I87.2 Venous insufficiency (chronic) (peripheral) (principal); L02.31 Cutaneous abscess of buttock; I73.9 Peripheral vascular disease, unspecified; L97.812 Non-pressure chronic ulcer of other part of right lower leg with fat layer exposed; L97.822 Non-pressure chronic ulcer of other part of left lower leg with fat layer exposed | CPT/HCPCS: 11042; 97597; 99212; 99213 ==

== ENCOUNTER → 2024-03-15 10:10 | Outpatient (CLI) | payer OTHER, SELFPAY | LOC: WC 10:10 | PROVIDERS: PCP Family Medicine; Referring Provider Family Medicine; Visit Provider Surgery | DX: L97.812 Non-pressure chronic ulcer of other part of right lower leg with fat layer exposed (principal); L97.822 Non-pressure chronic ulcer of other part of left lower leg with fat layer exposed; I87.2 Venous insufficiency (chronic) (peripheral); R60.0 Localized edema; I50.9 Heart failure, unspecified; I25.10 Atherosclerotic heart disease of native coronary artery without angina pectoris | CPT/HCPCS: 11042; 99213 ==

== ENCOUNTER → 2024-03-22 10:06 | Outpatient (CLI) | payer OTHER, SELFPAY | PROVIDERS: PCP Family Medicine; Referring Provider Family Medicine; Visit Provider Surgery | DX: L97.812 Non-pressure chronic ulcer of other part of right lower leg with fat layer exposed (principal); L97.822 Non-pressure chronic ulcer of other part of left lower leg with fat layer exposed; I87.2 Venous insufficiency (chronic) (peripheral); L89.313 Pressure ulcer of right buttock, stage 3; L02.31 Cutaneous abscess of buttock; I50.9 Heart failure, unspecified; Z79.01 Long term (current) use of anticoagulants | CPT/HCPCS: 11042; 99213 ==

== ENCOUNTER 2024-03-25 11:21 | Emergency (ER) | payer OTHER, SELFPAY ==
[2024-03-25] VITALS (50 sets, daily range): BP systolic 77–120; BP diastolic 39–87; PULSE 71–117; RESP 14–28; O2SAT 91–97; BMI 36.8
--- NOTE | 2024-03-25 11:29 | DI.CT.S_ITS ---
PROCEDURE: CT CERVICAL SPINE WO CON INDICATIONS: fall TECHNIQUE: Noncontrast 3 mm thick sections acquired from the skull base to the T4 level. Sagittal and coronal reformats were then constructed. For radiation dose reduction, the following was used: automated exposure control, adjustment of mA and/or kV according to patient size. COMPARISON: None. FINDINGS: Image quality: Diagnostic. Bones: No fractures or dislocations. Visualized superior ribs are intact. Multilevel degenerative changes. Soft tissues: Prevertebral soft tissues are normal in thickness. No paravertebral hematomas. No apical pneumothoraces. Moderate right pleural effusion with subjacent atelectasis. IMPRESSION: No acute displaced fracture or traumatic subluxation. Moderate right pleural effusion. Approved by: Emma Crawley M.D.,Ph.D. on 03/25/2024 at 12:29
--- NOTE | 2024-03-25 11:29 | DI.CT.S_ITS ---
PROCEDURE: CT HEAD/BRAIN WO CON INDICATIONS: fall on thinners TECHNIQUE: Noncontrast 4.5 mm thick angled axial sections acquired from the foramen magnum to the vertex, with coronal and sagittal reformats. For radiation dose reduction, the following was used: automated exposure control, adjustment of mA and/or kV according to patient size. COMPARISON: [facility], CT, CT HEAD/BRAIN WO CON, 06/18/2021, 15:38. FINDINGS: Image quality: Diagnostic. CSF spaces: Basal cisterns are patent. No extra-axial fluid collections. The ventricles are symmetric in size and shape. Brain: No intracranial bleeds or masses. There is cerebral volume loss for age, with resultant ventricular and sulcal prominence. There are periventricular and deep white matter chronic small vessel ischemic changes. There is intracranial internal carotid artery atherosclerosis. 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 Skull and face: Calvarium and visualized facial bones appear intact, without suspicious lesions. Left frontal scalp hematoma. Bilateral lens replacement. Sinuses: Visualized sinuses and mastoids are clear. IMPRESSION: No acute intracranial pathology. Left frontal scalp hematoma without associated acute craniofacial abnormality. Chronic right infarcts. Approved by: Emma Crawley M.D.,Ph.D. on 03/25/2024 at 12:31
--- NOTE | 2024-03-25 11:29 | DI.RAD.S_ITS ---
PROCEDURE: XR CHEST 1V INDICATIONS: chest pain TECHNIQUE: One view of the chest was acquired. COMPARISON: [facility], CR, XR CHEST 1V, 06/18/2021, 17:23. FINDINGS: Surgical changes and devices: Left chest wall AICD device with single cardiac lead Lungs and pleura: No pneumothorax. Moderate right pleural effusion with subjacent atelectasis. Left lung is clear.. Mediastinum: Mediastinal contours appear normal. Heart size is borderline enlarged. Bones and chest wall: No suspicious bony lesions. Overlying soft tissues appear unremarkable. IMPRESSION: Moderate right pleural effusion with subjacent atelectasis. Approved by: Emma Crawley M.D.,Ph.D. on 03/25/2024 at 11:46
--- NOTE | 2024-03-25 11:32 | ED_ITS ---
HPI - Fall <Irena Romero, DO - Last Filed: 03/31/24 00:37> General Chief Complaint: Trauma Stated Complaint: GLF, +thinners Time Seen by Provider: 03/25/24 11:23 History of Present Illness HPI Narrative: Patient is an 89-year-old male history CHF cardiomyopathy peripheral vascular disease with chronic leg wounds, chronic kidney disease COPD cardiac defibrillator on Pradaxa in place presenting today with a ground level fall. He lives at assisted care facility was found on the ground. He was unable to get up by himself required 4 people assistance. He then almost passed out again. He was found to be hypotensive with blood pressure in the 80s. EMS arrived he did require a little bit of oxygen but is now not requiring oxygen and normotensive. He says that he fell down. He has no complaints or injury. He has a very small contusion over the left eyebrow. He denies any sort of chest pain or palpitations. He has not been ill he has no fever chills cough or increasing shortness of breath. Nephew is at bedside more information is gathered. He reports that they have been messing with his medication his blood pressure does drop into the 80s as done it in the cardiology office as well. He has not really fallen until now. He reports that his swelling is actually much improved and that he is lost about 15 lb. It does appear that he is followed by wound care. He reports that they adjusted some medication but he has not sure what. Related Data Home Medications Medication Instructions Recorded Confirmed albuterol sulfate 90 mcg/actuation 2 puff inhalation Q4-6H PRN 02/08/23 03/26/24 aerosol inhaler shortness of breath aspirin 81 mg chewable tablet 1 tab PO DAILY 02/08/23 03/26/24 atorvastatin 20 mg tablet 20 mg PO DAILY 02/08/23 03/26/24 docusate sodium 100 mg capsule 100 mg PO BID 02/08/23 03/26/24 finasteride 5 mg tablet 5 mg PO DAILY 02/08/23 03/26/24 midodrine 2.5 mg tablet 5 mg PO BID 02/08/23 03/26/24 spironolactone 25 mg tablet 25 mg PO DAILY 02/08/23 03/26/24 multivitamin 1 tab PO DAILY 12/23/23 03/26/24 metolazone 2.5 mg tablet 2.5 mg PO DAILY 02/22/24 03/26/24 torsemide 100 mg tablet 100 mg PO DAILY 02/22/24 03/26/24 dabigatran etexilate 150 mg 150 mg PO BID 03/26/24 03/26/24 capsule (Pradaxa) ipratropium 0.5 mg-albuterol 3 mg 1 unit Q4HR PRN sob 03/26/24 03/26/24 (2.5 mg base)/3 mL nebulization soln losartan 25 mg tablet 12.5 mg PO DAILY 03/26/24 03/26/24 metoprolol succinate 25 mg 12.5 mg PO DAILY 03/26/24 03/26/24 tablet,extended release 24 hr potassium chloride 20 mEq 20 meq PO BID 03/26/24 03/26/24 tablet,extended release(part/cryst) Previous Rx's Medication Instructions Recorded Disabled parking permit #1 ea 06/23/23 levothyroxine 88 mcg tablet 88 mcg PO DAILY #90 tabs 12/28/23 Alvesco 160 mcg/actuation aerosol 1 puff inhalation BID #12.2 grams 02/21/24 inhaler (ciclesonide) Allergies Allergy/AdvReac Type Severity Reaction Status Date / Time No Known Drug Allergies Allergy Verified 03/26/24 17:57 Patient History <Irena Romero DO - Last Filed: 03/31/24 00:37> Medical History CKD (chronic kidney disease) stage 3, GFR 30-59 ml/min History of CVA (cerebrovascular accident) History of cardiac arrest POLST (Physician Orders for Life-Sustaining Treatment) Leg ulcer Peripheral vascular disease 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 Cardiomyopathy Cardiac defibrillator in place DVT (deep venous thrombosis) CVA (cerebral vascular accident) COPD (chronic obstructive pulmonary disease) Anemia, chronic disease Hypothyroidism Benign essential HTN Cardiac arrest Family History Mother Cancer Social History Smoking Status: Never smoker Smoking Status: Never smoker Substance Use Type: does not use Exam <Irena Romero DO - Last Filed: 03/31/24 00:37> Initial Vital Signs Initial Vital Signs: Vital Signs Pulse Rate 108 H 03/25/24 11:26 Pulse Oximetry 97 03/25/24 11:26 Oxygen Delivery Method Room Air 03/25/24 11:26 GENERAL: Alert elderly 89-year-old male. HEENT: Head very small contusion over left forehead no crepitations no depressions,EOMI, pupils reactive, face symmetric, moist mucous membranes NECK: No vertebral tenderness no step-off full range of motion CARDIOVASCULAR: Regular rate and rhythm without murmurs, rubs or gallops. RESPIRATORY: Breath sounds equal bilaterally, no wheezes rales or rhonchi. ABDOMEN: Soft, nontender. Normoactive bowel sounds all 4 quadrants. No guarding or rebound. : No CVA tenderness EXTREMITIES: Normal range of motion, no clubbing. Bilateral lower extremity edema Neurovascularly intact NEUROLOGICAL: Alert and oriented x4. Normal speech Cranial nerves II through XII grossly intact. Good [id number], good [id number], strength equal bilaterally, no dysarthria or aphasia, sensation in tact to soft touch bilaterally, no visual changes, no facial droop SKIN: Chronic wounds anterior shins left has skin break down but both have dressings on them left leg is a little more erythematous right as well. Sacral breakdown as well on both butt cheeks about 1 x 2 cm <Alfredo Mosquera, DO - Last Filed: 03/25/24 16:19> Initial Vital Signs Initial Vital Signs: Vital Signs Pulse Rate 108 H 03/25/24 11:26 Pulse Oximetry 97 03/25/24 11:26 Oxygen Delivery Method Room Air 03/25/24 11:26 <Amador Gonzalez, DO - Last Filed: 03/26/24 06:19> Initial Vital Signs Initial Vital Signs: Vital Signs Pulse Rate 108 H 03/25/24 11:26 Pulse Oximetry 97 03/25/24 11:26 Oxygen Delivery Method Room Air 03/25/24 11:26 <Shruthi Osman, DO - Last Filed: 03/27/24 07:04> Initial Vital Signs Initial Vital Signs: Vital Signs Pulse Rate 108 H 03/25/24 11:26 Pulse Oximetry 97 03/25/24 11:26 Oxygen Delivery Method Room Air 03/25/24 11:26 Course <Irena Romero DO - Last Filed: 03/31/24 00:37> Orders Ordered: Discontinued Medications Albuterol/Ipratropium (Albuterol/Ipratropium 3 Ml Ampul) 3 ml INH RTQ4HR PRN PRN Reason: Shortness Of Breath Atorvastatin Calcium (Atorvastatin 20 Mg Tablet) 20 mg PO NOW ONE Stop: 03/26/24 18:07 Last Admin: 03/26/24 18:22 Dose: 20 mg Documented By: SB Dabigatran (Dabigatran 75 Mg Capsule) 150 mg PO NOW ONE Stop: 03/26/24 08:20 Last Admin: 03/26/24 09:36 Dose: 150 mg Documented By: MPO Dabigatran (Dabigatran 75 Mg Capsule) 150 mg PO BID BON[facility]ACIO Finasteride (Finasteride 5 Mg Tablet) 5 mg PO NOW ONE Stop: 03/26/24 08:20 Last Admin: 03/26/24 09:36 Dose: 5 mg Documented By: MPO Furosemide (Furosemide 40 Mg/4 Ml Vial) 40 mg IV NOW ONE Stop: 03/25/24 13:57 Last Admin: 03/25/24 14:34 Dose: 40 mg Documented By: BS Furosemide (Furosemide 40 Mg/4 Ml Vial) 40 mg IV NOW ONE Stop: 03/26/24 08:20 Last Admin: 03/26/24 09:38 Dose: 40 mg Documented By: MPO Levothyroxine Sodium (Levothyroxine 88 Mcg Tablet) 88 mcg PO NOW ONE Stop: 03/26/24 08:20 Last Admin: 03/26/24 09:36 Dose: 88 mcg Documented By: MPO Lidocaine HCl (Lidocaine 2% (Glydo) 6 Ml Gel) 6 ml TOP NOW ONE Stop: 03/25/24 14:12 Last Admin: 03/25/24 14:35 Dose: 6 ml Documented By: BS Metoprolol Succinate (Metoprolol Er 25 Mg Tablet) 25 mg PO NOW ONE Stop: 03/26/24 18:07 Last Admin: 03/26/24 18:22 Dose: 25 mg Documented By: SB Midodrine (Midodrine Hcl 5 Mg Tablet) 2.5 mg PO BID [facility] Last Admin: 03/26/24 11:25 Dose: Not Given Documented By: Admin: 03/26/24 09:36 Dose: 2.5 mg Documented By: MPO Potassium Chloride (Potassium Chloride 20 Meq Tab) 40 meq PO NOW ONE Stop: 03/26/24 10:51 Last Admin: 03/26/24 11:12 Dose: 40 meq Documented By: DESTINEY Spironolactone (Spironolactone 25 Mg Tablet) 25 mg PO NOW ONE Stop: 03/26/24 08:20 Last Admin: 03/26/24 09:39 Dose: 25 mg Documented By: DESTINEY Torsemide (Torsemide 100 Mg Tablet) 100 mg PO DAILY [facility] Vital Signs Vital signs: Vital Signs - 8 hr 03/26/24 10:46 03/26/24 10:46 03/26/24 11:00 Pulse Rate 110 H 113 H Respiratory Rate 19 18 Blood Pressure 98/54 L Pulse Oximetry 93 93 Oxygen Delivery Method Oxygen Flow Rate 03/26/24 11:00 03/26/24 11:15 03/26/24 11:15 Pulse Rate 123 H Respiratory Rate 20 Blood Pressure 111/55 L 95/55 L Pulse Oximetry 95 Oxygen Delivery Method Oxygen Flow Rate 03/26/24 11:30 03/26/24 11:45 03/26/24 11:45 Pulse Rate 106 H 106 H Respiratory Rate 17 19 Blood Pressure 108/55 L Pulse Oximetry 94 94 Oxygen Delivery Method Oxygen Flow Rate 03/26/24 12:00 03/26/24 12:00 03/26/24 12:16 Pulse Rate 113 H 113 H Respiratory Rate 15 20 Blood Pressure 92/65 Pulse Oximetry 95 95 Oxygen Delivery Method Oxygen Flow Rate 03/26/24 12:16 03/26/24 12:30 03/26/24 12:30 Pulse Rate 104 H Respiratory Rate 20 Blood Pressure 130/58 L 107/56 L Pulse Oximetry 93 Oxygen Delivery Method Oxygen Flow Rate 03/26/24 12:45 03/26/24 12:45 03/26/24 13:00 Pulse Rate 123 H 113 H Respiratory Rate 22 18 Blood Pressure 93/52 L Pulse Oximetry 93 92 Oxygen Delivery Method Oxygen Flow Rate 03/26/24 13:00 03/26/24 13:15 03/26/24 13:15 Pulse Rate 115 H Respiratory Rate 21 Blood Pressure 103/51 L 109/66 Pulse Oximetry 94 Oxygen Delivery Method Oxygen Flow Rate 03/26/24 13:30 03/26/24 13:30 03/26/24 13:45 Pulse Rate 111 H 107 H Respiratory Rate 19 18 Blood Pressure 99/56 L Pulse Oximetry 90 L 91 Oxygen Delivery Method Oxygen Flow Rate 03/26/24 13:45 03/26/24 13:52 03/26/24 13:52 Pulse Rate 104 H Respiratory Rate 20 Blood Pressure 94/50 L 120/56 L Pulse Oximetry 90 L Oxygen Delivery Method Room Air Nasal Cannula Oxygen Flow Rate 2 2 03/26/24 14:00 03/26/24 14:00 03/26/24 14:15 Pulse Rate 107 H 117 H Respiratory Rate 21 21 Blood Pressure 112/56 L Pulse Oximetry 91 92 Oxygen Delivery Method Oxygen Flow Rate 2 03/26/24 14:15 03/26/24 14:30 03/26/24 14:30 Pulse Rate 107 H Respiratory Rate 21 Blood Pressure 105/52 L 100/51 L Pulse Oximetry 96 Oxygen Delivery Method Nasal Cannula Oxygen Flow Rate 2 03/26/24 14:38 03/26/24 14:38 03/26/24 14:45 Pulse Rate 112 H 109 H Respiratory Rate 21 17 Blood Pressure 114/54 L Pulse Oximetry 95 94 Oxygen Delivery Method Oxygen Flow Rate 03/26/24 14:45 03/26/24 15:00 03/26/24 15:00 Pulse Rate 103 H Respiratory Rate 20 Blood Pressure 111/56 L 116/64 Pulse Oximetry 94 Oxygen Delivery Method Nasal Cannula Oxygen Flow Rate 2 03/26/24 15:15 03/26/24 15:15 03/26/24 15:30 Pulse Rate 107 H Respiratory Rate 20 Blood Pressure 124/67 112/64 Pulse Oximetry 95 Oxygen Delivery Method Oxygen Flow Rate 03/26/24 15:30 03/26/24 15:45 03/26/24 15:45 Pulse Rate 110 H 98 H Respiratory Rate 20 20 Blood Pressure 117/58 L Pulse Oximetry 94 95 Oxygen Delivery Method Oxygen Flow Rate 03/26/24 16:00 03/26/24 16:00 03/26/24 16:16 Pulse Rate 99 H Respiratory Rate 20 Blood Pressure 127/66 129/64 Pulse Oximetry 94 Oxygen Delivery Method Oxygen Flow Rate 03/26/24 16:16 03/26/24 16:30 03/26/24 16:30 Pulse Rate 104 H 93 H Respiratory Rate 20 21 Blood Pressure 108/58 L Pulse Oximetry 94 Oxygen Delivery Method Oxygen Flow Rate 03/26/24 16:45 03/26/24 16:45 03/26/24 17:00 Pulse Rate 102 H Respiratory Rate 20 Blood Pressure 126/59 L 134/60 Pulse Oximetry Oxygen Delivery Method Oxygen Flow Rate 03/26/24 17:00 03/26/24 17:15 03/26/24 17:15 Pulse Rate 119 H 122 H Respiratory Rate 34 H 24 Blood Pressure 111/67 Pulse Oximetry 95 95 Oxygen Delivery Method Oxygen Flow Rate 03/26/24 17:30 03/26/24 17:30 03/26/24 17:50 Pulse Rate 118 H Respiratory Rate 22 Blood Pressure 112/58 L 117/65 Pulse Oximetry 94 Oxygen Delivery Method Oxygen Flow Rate 03/26/24 17:50 03/26/24 18:22 Pulse Rate 128 H 138 H Respiratory Rate 21 Blood Pressure 118/61 Pulse Oximetry 93 Oxygen Delivery Method Oxygen Flow Rate <Alfredo Mosquera DO - Last Filed: 03/25/24 16:19> Orders Ordered: Discontinued Medications Albuterol/Ipratropium (Albuterol/Ipratropium 3 Ml Ampul) 3 ml INH RTQ4HR PRN PRN Reason: Shortness Of Breath Atorvastatin Calcium (Atorvastatin 20 Mg Tablet) 20 mg PO NOW ONE Stop: 03/26/24 18:07 Last Admin: 03/26/24 18:22 Dose: 20 mg Documented By: SB Dabigatran (Dabigatran 75 Mg Capsule) 150 mg PO NOW ONE Stop: 03/26/24 08:20 Last Admin: 03/26/24 09:36 Dose: 150 mg Documented By: MPO Dabigatran (Dabigatran 75 Mg Capsule) 150 mg PO BID BON[facility]ACIO Finasteride (Finasteride 5 Mg Tablet) 5 mg PO NOW ONE Stop: 03/26/24 08:20 Last Admin: 03/26/24 09:36 Dose: 5 mg Documented By: MPO Furosemide (Furosemide 40 Mg/4 Ml Vial) 40 mg IV NOW ONE Stop: 03/25/24 13:57 Last Admin: 03/25/24 14:34 Dose: 40 mg Documented By: BS Furosemide (Furosemide 40 Mg/4 Ml Vial) 40 mg IV NOW ONE Stop: 03/26/24 08:20 Last Admin: 03/26/24 09:38 Dose: 40 mg Documented By: MPO Levothyroxine Sodium (Levothyroxine 88 Mcg Tablet) 88 mcg PO NOW ONE Stop: 03/26/24 08:20 Last Admin: 03/26/24 09:36 Dose: 88 mcg Documented By: DESTINEY Lidocaine HCl (Lidocaine 2% (Glydo) 6 Ml Gel) 6 ml TOP NOW ONE Stop: 03/25/24 14:12 Last Admin: 03/25/24 14:35 Dose: 6 ml Documented By: BS Metoprolol Succinate (Metoprolol Er 25 Mg Tablet) 25 mg PO NOW ONE Stop: 03/26/24 18:07 Last Admin: 03/26/24 18:22 Dose: 25 mg Documented By: SB Midodrine (Midodrine Hcl 5 Mg Tablet) 2.5 mg PO BID [facility] Last Admin: 03/26/24 11:25 Dose: Not Given Documented By: Admin: 03/26/24 09:36 Dose: 2.5 mg Documented By: DESTINEY Potassium Chloride (Potassium Chloride 20 Meq Tab) 40 meq PO NOW ONE Stop: 03/26/24 10:51 Last Admin: 03/26/24 11:12 Dose: 40 meq Documented By: DESTINEY Spironolactone (Spironolactone 25 Mg Tablet) 25 mg PO NOW ONE Stop: 03/26/24 08:20 Last Admin: 03/26/24 09:39 Dose: 25 mg Documented By: DESTINEY Torsemide (Torsemide 100 Mg Tablet) 100 mg PO DAILY [facility] Vital Signs Vital signs: Vital Signs - 8 hr 03/26/24 10:46 03/26/24 10:46 03/26/24 11:00 Pulse Rate 110 H 113 H Respiratory Rate 19 18 Blood Pressure 98/54 L Pulse Oximetry 93 93 Oxygen Delivery Method Oxygen Flow Rate 03/26/24 11:00 03/26/24 11:15 03/26/24 11:15 Pulse Rate 123 H Respiratory Rate 20 Blood Pressure 111/55 L 95/55 L Pulse Oximetry 95 Oxygen Delivery Method Oxygen Flow Rate 03/26/24 11:30 03/26/24 11:45 03/26/24 11:45 Pulse Rate 106 H 106 H Respiratory Rate 17 19 Blood Pressure 108/55 L Pulse Oximetry 94 94 Oxygen Delivery Method Oxygen Flow Rate 03/26/24 12:00 03/26/24 12:00 03/26/24 12:16 Pulse Rate 113 H 113 H Respiratory Rate 15 20 Blood Pressure 92/65 Pulse Oximetry 95 95 Oxygen Delivery Method Oxygen Flow Rate 03/26/24 12:16 03/26/24 12:30 03/26/24 12:30 Pulse Rate 104 H Respiratory Rate 20 Blood Pressure 130/58 L 107/56 L Pulse Oximetry 93 Oxygen Delivery Method Oxygen Flow Rate 03/26/24 12:45 03/26/24 12:45 03/26/24 13:00 Pulse Rate 123 H 113 H Respiratory Rate 22 18 Blood Pressure 93/52 L Pulse Oximetry 93 92 Oxygen Delivery Method Oxygen Flow Rate 03/26/24 13:00 03/26/24 13:15 03/26/24 13:15 Pulse Rate 115 H Respiratory Rate 21 Blood Pressure 103/51 L 109/66 Pulse Oximetry 94 Oxygen Delivery Method Oxygen Flow Rate 03/26/24 13:30 03/26/24 13:30 03/26/24 13:45 Pulse Rate 111 H 107 H Respiratory Rate 19 18 Blood Pressure 99/56 L Pulse Oximetry 90 L 91 Oxygen Delivery Method Oxygen Flow Rate 03/26/24 13:45 03/26/24 13:52 03/26/24 13:52 Pulse Rate 104 H Respiratory Rate 20 Blood Pressure 94/50 L 120/56 L Pulse Oximetry 90 L Oxygen Delivery Method Room Air Nasal Cannula Oxygen Flow Rate 2 2 03/26/24 14:00 03/26/24 14:00 03/26/24 14:15 Pulse Rate 107 H 117 H Respiratory Rate 21 21 Blood Pressure 112/56 L Pulse Oximetry 91 92 Oxygen Delivery Method Oxygen Flow Rate 2 03/26/24 14:15 03/26/24 14:30 03/26/24 14:30 Pulse Rate 107 H Respiratory Rate 21 Blood Pressure 105/52 L 100/51 L Pulse Oximetry 96 Oxygen Delivery Method Nasal Cannula Oxygen Flow Rate 2 03/26/24 14:38 03/26/24 14:38 03/26/24 14:45 Pulse Rate 112 H 109 H Respiratory Rate 21 17 Blood Pressure 114/54 L Pulse Oximetry 95 94 Oxygen Delivery Method Oxygen Flow Rate 03/26/24 14:45 03/26/24 15:00 03/26/24 15:00 Pulse Rate 103 H Respiratory Rate 20 Blood Pressure 111/56 L 116/64 Pulse Oximetry 94 Oxygen Delivery Method Nasal Cannula Oxygen Flow Rate 2 03/26/24 15:15 03/26/24 15:15 03/26/24 15:30 Pulse Rate 107 H Respiratory Rate 20 Blood Pressure 124/67 112/64 Pulse Oximetry 95 Oxygen Delivery Method Oxygen Flow Rate 03/26/24 15:30 03/26/24 15:45 03/26/24 15:45 Pulse Rate 110 H 98 H Respiratory Rate 20 20 Blood Pressure 117/58 L Pulse Oximetry 94 95 Oxygen Delivery Method Oxygen Flow Rate 03/26/24 16:00 03/26/24 16:00 03/26/24 16:16 Pulse Rate 99 H Respiratory Rate 20 Blood Pressure 127/66 129/64 Pulse Oximetry 94 Oxygen Delivery Method Oxygen Flow Rate 03/26/24 16:16 03/26/24 16:30 03/26/24 16:30 Pulse Rate 104 H 93 H Respiratory Rate 20 21 Blood Pressure 108/58 L Pulse Oximetry 94 Oxygen Delivery Method Oxygen Flow Rate 03/26/24 16:45 03/26/24 16:45 03/26/24 17:00 Pulse Rate 102 H Respiratory Rate 20 Blood Pressure 126/59 L 134/60 Pulse Oximetry Oxygen Delivery Method Oxygen Flow Rate 03/26/24 17:00 03/26/24 17:15 03/26/24 17:15 Pulse Rate 119 H 122 H Respiratory Rate 34 H 24 Blood Pressure 111/67 Pulse Oximetry 95 95 Oxygen Delivery Method Oxygen Flow Rate 03/26/24 17:30 03/26/24 17:30 03/26/24 17:50 Pulse Rate 118 H Respiratory Rate 22 Blood Pressure 112/58 L 117/65 Pulse Oximetry 94 Oxygen Delivery Method Oxygen Flow Rate 03/26/24 17:50 03/26/24 18:22 Pulse Rate 128 H 138 H Respiratory Rate 21 Blood Pressure 118/61 Pulse Oximetry 93 Oxygen Delivery Method Oxygen Flow Rate <Amador Gonzalez, - Last Filed: 03/26/24 06:19> Orders Ordered: Discontinued Medications Albuterol/Ipratropium (Albuterol/Ipratropium 3 Ml Ampul) 3 ml INH RTQ4HR PRN PRN Reason: Shortness Of Breath Atorvastatin Calcium (Atorvastatin 20 Mg Tablet) 20 mg PO NOW ONE Stop: 03/26/24 18:07 Last Admin: 03/26/24 18:22 Dose: 20 mg Documented By: MARIA A Dabigatran (Dabigatran 75 Mg Capsule) 150 mg PO NOW ONE Stop: 03/26/24 08:20 Last Admin: 03/26/24 09:36 Dose: 150 mg Documented By: MPO Dabigatran (Dabigatran 75 Mg Capsule) 150 mg PO BID [facility] Finasteride (Finasteride 5 Mg Tablet) 5 mg PO NOW ONE Stop: 03/26/24 08:20 Last Admin: 03/26/24 09:36 Dose: 5 mg Documented By: MPO Furosemide (Furosemide 40 Mg/4 Ml Vial) 40 mg IV NOW ONE Stop: 03/25/24 13:57 Last Admin: 03/25/24 14:34 Dose: 40 mg Documented By: BS Furosemide (Furosemide 40 Mg/4 Ml Vial) 40 mg IV NOW ONE Stop: 03/26/24 08:20 Last Admin: 03/26/24 09:38 Dose: 40 mg Documented By: MPO Levothyroxine Sodium (Levothyroxine 88 Mcg Tablet) 88 mcg PO NOW ONE Stop: 03/26/24 08:20 Last Admin: 03/26/24 09:36 Dose: 88 mcg Documented By: MPO Lidocaine HCl (Lidocaine 2% (Glydo) 6 Ml Gel) 6 ml TOP NOW ONE Stop: 03/25/24 14:12 Last Admin: 03/25/24 14:35 Dose: 6 ml Documented By: BS Metoprolol Succinate (Metoprolol Er 25 Mg Tablet) 25 mg PO NOW ONE Stop: 03/26/24 18:07 Last Admin: 03/26/24 18:22 Dose: 25 mg Documented By: SB Midodrine (Midodrine Hcl 5 Mg Tablet) 2.5 mg PO BID [facility] Last Admin: 03/26/24 11:25 Dose: Not Given Documented By: Admin: 03/26/24 09:36 Dose: 2.5 mg Documented By: MPO Potassium Chloride (Potassium Chloride 20 Meq Tab) 40 meq PO NOW ONE Stop: 03/26/24 10:51 Last Admin: 03/26/24 11:12 Dose: 40 meq Documented By: MPO Spironolactone (Spironolactone 25 Mg Tablet) 25 mg PO NOW ONE Stop: 03/26/24 08:20 Last Admin: 03/26/24 09:39 Dose: 25 mg Documented By: MPO Torsemide (Torsemide 100 Mg Tablet) 100 mg PO DAILY [facility] Vital Signs Vital signs: Vital Signs - 8 hr 03/26/24 10:46 03/26/24 10:46 03/26/24 11:00 Pulse Rate 110 H 113 H Respiratory Rate 19 18 Blood Pressure 98/54 L Pulse Oximetry 93 93 Oxygen Delivery Method Oxygen Flow Rate 03/26/24 11:00 03/26/24 11:15 03/26/24 11:15 Pulse Rate 123 H Respiratory Rate 20 Blood Pressure 111/55 L 95/55 L Pulse Oximetry 95 Oxygen Delivery Method Oxygen Flow Rate 03/26/24 11:30 03/26/24 11:45 03/26/24 11:45 Pulse Rate 106 H 106 H Respiratory Rate 17 19 Blood Pressure 108/55 L Pulse Oximetry 94 94 Oxygen Delivery Method Oxygen Flow Rate 03/26/24 12:00 03/26/24 12:00 03/26/24 12:16 Pulse Rate 113 H 113 H Respiratory Rate 15 20 Blood Pressure 92/65 Pulse Oximetry 95 95 Oxygen Delivery Method Oxygen Flow Rate 03/26/24 12:16 03/26/24 12:30 03/26/24 12:30 Pulse Rate 104 H Respiratory Rate 20 Blood Pressure 130/58 L 107/56 L Pulse Oximetry 93 Oxygen Delivery Method Oxygen Flow Rate 03/26/24 12:45 03/26/24 12:45 03/26/24 13:00 Pulse Rate 123 H 113 H Respiratory Rate 22 18 Blood Pressure 93/52 L Pulse Oximetry 93 92 Oxygen Delivery Method Oxygen Flow Rate 03/26/24 13:00 03/26/24 13:15 03/26/24 13:15 Pulse Rate 115 H Respiratory Rate 21 Blood Pressure 103/51 L 109/66 Pulse Oximetry 94 Oxygen Delivery Method Oxygen Flow Rate 03/26/24 13:30 03/26/24 13:30 03/26/24 13:45 Pulse Rate 111 H 107 H Respiratory Rate 19 18 Blood Pressure 99/56 L Pulse Oximetry 90 L 91 Oxygen Delivery Method Oxygen Flow Rate 03/26/24 13:45 03/26/24 13:52 03/26/24 13:52 Pulse Rate 104 H Respiratory Rate 20 Blood Pressure 94/50 L 120/56 L Pulse Oximetry 90 L Oxygen Delivery Method Room Air Nasal Cannula Oxygen Flow Rate 2 2 03/26/24 14:00 03/26/24 14:00 03/26/24 14:15 Pulse Rate 107 H 117 H Respiratory Rate 21 21 Blood Pressure 112/56 L Pulse Oximetry 91 92 Oxygen Delivery Method Oxygen Flow Rate 2 03/26/24 14:15 03/26/24 14:30 03/26/24 14:30 Pulse Rate 107 H Respiratory Rate 21 Blood Pressure 105/52 L 100/51 L Pulse Oximetry 96 Oxygen Delivery Method Nasal Cannula Oxygen Flow Rate 2 03/26/24 14:38 03/26/24 14:38 03/26/24 14:45 Pulse Rate 112 H 109 H Respiratory Rate 21 17 Blood Pressure 114/54 L Pulse Oximetry 95 94 Oxygen Delivery Method Oxygen Flow Rate 03/26/24 14:45 03/26/24 15:00 03/26/24 15:00 Pulse Rate 103 H Respiratory Rate 20 Blood Pressure 111/56 L 116/64 Pulse Oximetry 94 Oxygen Delivery Method Nasal Cannula Oxygen Flow Rate 2 03/26/24 15:15 03/26/24 15:15 03/26/24 15:30 Pulse Rate 107 H Respiratory Rate 20 Blood Pressure 124/67 112/64 Pulse Oximetry 95 Oxygen Delivery Method Oxygen Flow Rate 03/26/24 15:30 03/26/24 15:45 03/26/24 15:45 Pulse Rate 110 H 98 H Respiratory Rate 20 20 Blood Pressure 117/58 L Pulse Oximetry 94 95 Oxygen Delivery Method Oxygen Flow Rate 03/26/24 16:00 03/26/24 16:00 03/26/24 16:16 Pulse Rate 99 H Respiratory Rate 20 Blood Pressure 127/66 129/64 Pulse Oximetry 94 Oxygen Delivery Method Oxygen Flow Rate 03/26/24 16:16 03/26/24 16:30 03/26/24 16:30 Pulse Rate 104 H 93 H Respiratory Rate 20 21 Blood Pressure 108/58 L Pulse Oximetry 94 Oxygen Delivery Method Oxygen Flow Rate 03/26/24 16:45 03/26/24 16:45 03/26/24 17:00 Pulse Rate 102 H Respiratory Rate 20 Blood Pressure 126/59 L 134/60 Pulse Oximetry Oxygen Delivery Method Oxygen Flow Rate 03/26/24 17:00 03/26/24 17:15 03/26/24 17:15 Pulse Rate 119 H 122 H Respiratory Rate 34 H 24 Blood Pressure 111/67 Pulse Oximetry 95 95 Oxygen Delivery Method Oxygen Flow Rate 03/26/24 17:30 03/26/24 17:30 03/26/24 17:50 Pulse Rate 118 H Respiratory Rate 22 Blood Pressure 112/58 L 117/65 Pulse Oximetry 94 Oxygen Delivery Method Oxygen Flow Rate 03/26/24 17:50 03/26/24 18:22 Pulse Rate 128 H 138 H Respiratory Rate 21 Blood Pressure 118/61 Pulse Oximetry 93 Oxygen Delivery Method Oxygen Flow Rate <Shruthi Osman DO - Last Filed: 03/27/24 07:04> Orders Ordered: Discontinued Medications Albuterol/Ipratropium (Albuterol/Ipratropium 3 Ml Ampul) 3 ml INH RTQ4HR PRN PRN Reason: Shortness Of Breath Atorvastatin Calcium (Atorvastatin 20 Mg Tablet) 20 mg PO NOW ONE Stop: 03/26/24 18:07 Last Admin: 03/26/24 18:22 Dose: 20 mg Documented By: SB Dabigatran (Dabigatran 75 Mg Capsule) 150 mg PO NOW ONE Stop: 03/26/24 08:20 Last Admin: 03/26/24 09:36 Dose: 150 mg Documented By: DESTINEY Dabigatran (Dabigatran 75 Mg Capsule) 150 mg PO BID [facility] Finasteride (Finasteride 5 Mg Tablet) 5 mg PO NOW ONE Stop: 03/26/24 08:20 Last Admin: 03/26/24 09:36 Dose: 5 mg Documented By: MPO Furosemide (Furosemide 40 Mg/4 Ml Vial) 40 mg IV NOW ONE Stop: 03/25/24 13:57 Last Admin: 03/25/24 14:34 Dose: 40 mg Documented By: BS Furosemide (Furosemide 40 Mg/4 Ml Vial) 40 mg IV NOW ONE Stop: 03/26/24 08:20 Last Admin: 03/26/24 09:38 Dose: 40 mg Documented By: MPO Levothyroxine Sodium (Levothyroxine 88 Mcg Tablet) 88 mcg PO NOW ONE Stop: 03/26/24 08:20 Last Admin: 03/26/24 09:36 Dose: 88 mcg Documented By: MPO Lidocaine HCl (Lidocaine 2% (Glydo) 6 Ml Gel) 6 ml TOP NOW ONE Stop: 03/25/24 14:12 Last Admin: 03/25/24 14:35 Dose: 6 ml Documented By: BS Metoprolol Succinate (Metoprolol Er 25 Mg Tablet) 25 mg PO NOW ONE Stop: 03/26/24 18:07 Last Admin: 03/26/24 18:22 Dose: 25 mg Documented By: SB Midodrine (Midodrine Hcl 5 Mg Tablet) 2.5 mg PO BID [facility] Last Admin: 03/26/24 11:25 Dose: Not Given Documented By: Admin: 03/26/24 09:36 Dose: 2.5 mg Documented By: DESTINEY Potassium Chloride (Potassium Chloride 20 Meq Tab) 40 meq PO NOW ONE Stop: 03/26/24 10:51 Last Admin: 03/26/24 11:12 Dose: 40 meq Documented By: DESTINEY Spironolactone (Spironolactone 25 Mg Tablet) 25 mg PO NOW ONE Stop: 03/26/24 08:20 Last Admin: 03/26/24 09:39 Dose: 25 mg Documented By: DESTINEY Torsemide (Torsemide 100 Mg Tablet) 100 mg PO DAILY [facility] Vital Signs Vital signs: Vital Signs - 8 hr 03/26/24 10:46 03/26/24 10:46 03/26/24 11:00 Pulse Rate 110 H 113 H Respiratory Rate 19 18 Blood Pressure 98/54 L Pulse Oximetry 93 93 Oxygen Delivery Method Oxygen Flow Rate 03/26/24 11:00 03/26/24 11:15 03/26/24 11:15 Pulse Rate 123 H Respiratory Rate 20 Blood Pressure 111/55 L 95/55 L Pulse Oximetry 95 Oxygen Delivery Method Oxygen Flow Rate 03/26/24 11:30 03/26/24 11:45 03/26/24 11:45 Pulse Rate 106 H 106 H Respiratory Rate 17 19 Blood Pressure 108/55 L Pulse Oximetry 94 94 Oxygen Delivery Method Oxygen Flow Rate 03/26/24 12:00 03/26/24 12:00 03/26/24 12:16 Pulse Rate 113 H 113 H Respiratory Rate 15 20 Blood Pressure 92/65 Pulse Oximetry 95 95 Oxygen Delivery Method Oxygen Flow Rate 03/26/24 12:16 03/26/24 12:30 03/26/24 12:30 Pulse Rate 104 H Respiratory Rate 20 Blood Pressure 130/58 L 107/56 L Pulse Oximetry 93 Oxygen Delivery Method Oxygen Flow Rate 03/26/24 12:45 03/26/24 12:45 03/26/24 13:00 Pulse Rate 123 H 113 H Respiratory Rate 22 18 Blood Pressure 93/52 L Pulse Oximetry 93 92 Oxygen Delivery Method Oxygen Flow Rate 03/26/24 13:00 03/26/24 13:15 03/26/24 13:15 Pulse Rate 115 H Respiratory Rate 21 Blood Pressure 103/51 L 109/66 Pulse Oximetry 94 Oxygen Delivery Method Oxygen Flow Rate 03/26/24 13:30 03/26/24 13:30 03/26/24 13:45 Pulse Rate 111 H 107 H Respiratory Rate 19 18 Blood Pressure 99/56 L Pulse Oximetry 90 L 91 Oxygen Delivery Method Oxygen Flow Rate 03/26/24 13:45 03/26/24 13:52 03/26/24 13:52 Pulse Rate 104 H Respiratory Rate 20 Blood Pressure 94/50 L 120/56 L Pulse Oximetry 90 L Oxygen Delivery Method Room Air Nasal Cannula Oxygen Flow Rate 2 2 03/26/24 14:00 03/26/24 14:00 03/26/24 14:15 Pulse Rate 107 H 117 H Respiratory Rate 21 21 Blood Pressure 112/56 L Pulse Oximetry 91 92 Oxygen Delivery Method Oxygen Flow Rate 2 03/26/24 14:15 03/26/24 14:30 03/26/24 14:30 Pulse Rate 107 H Respiratory Rate 21 Blood Pressure 105/52 L 100/51 L Pulse Oximetry 96 Oxygen Delivery Method Nasal Cannula Oxygen Flow Rate 2 03/26/24 14:38 03/26/24 14:38 03/26/24 14:45 Pulse Rate 112 H 109 H Respiratory Rate 21 17 Blood Pressure 114/54 L Pulse Oximetry 95 94 Oxygen Delivery Method Oxygen Flow Rate 03/26/24 14:45 03/26/24 15:00 03/26/24 15:00 Pulse Rate 103 H Respiratory Rate 20 Blood Pressure 111/56 L 116/64 Pulse Oximetry 94 Oxygen Delivery Method Nasal Cannula Oxygen Flow Rate 2 03/26/24 15:15 03/26/24 15:15 03/26/24 15:30 Pulse Rate 107 H Respiratory Rate 20 Blood Pressure 124/67 112/64 Pulse Oximetry 95 Oxygen Delivery Method Oxygen Flow Rate 03/26/24 15:30 03/26/24 15:45 03/26/24 15:45 Pulse Rate 110 H 98 H Respiratory Rate 20 20 Blood Pressure 117/58 L Pulse Oximetry 94 95 Oxygen Delivery Method Oxygen Flow Rate 03/26/24 16:00 03/26/24 16:00 03/26/24 16:16 Pulse Rate 99 H Respiratory Rate 20 Blood Pressure 127/66 129/64 Pulse Oximetry 94 Oxygen Delivery Method Oxygen Flow Rate 03/26/24 16:16 03/26/24 16:30 03/26/24 16:30 Pulse Rate 104 H 93 H Respiratory Rate 20 21 Blood Pressure 108/58 L Pulse Oximetry 94 Oxygen Delivery Method Oxygen Flow Rate 03/26/24 16:45 03/26/24 16:45 03/26/24 17:00 Pulse Rate 102 H Respiratory Rate 20 Blood Pressure 126/59 L 134/60 Pulse Oximetry Oxygen Delivery Method Oxygen Flow Rate 03/26/24 17:00 03/26/24 17:15 03/26/24 17:15 Pulse Rate 119 H 122 H Respiratory Rate 34 H 24 Blood Pressure 111/67 Pulse Oximetry 95 95 Oxygen Delivery Method Oxygen Flow Rate 03/26/24 17:30 03/26/24 17:30 03/26/24 17:50 Pulse Rate 118 H Respiratory Rate 22 Blood Pressure 112/58 L 117/65 Pulse Oximetry 94 Oxygen Delivery Method Oxygen Flow Rate 03/26/24 17:50 03/26/24 18:22 Pulse Rate 128 H 138 H Respiratory Rate 21 Blood Pressure 118/61 Pulse Oximetry 93 Oxygen Delivery Method Oxygen Flow Rate MDM - Fall <Irena Romero, DO - Last Filed: 03/31/24 00:37> Lab Data 03/26/24 08:55 03/26/24 08:55 Labs: Lab Results 03/25/24 03/25/24 03/26/24 Range/Units 11:00 13:29 08:55 WBC 10.1 7.8 (4.5-11.0) X10^3/uL RBC 3.17 L 3.06 L (4.5-5.9) X10^6/uL Hgb 10.3 L 9.9 L (13.5-17.5) g/dL Hct 30.5 L 29.1 L (41-53) % MCV 96.1 95.1 (80-100) fL MCH 32.4 32.3 (26-34) PG MCHC 33.7 34.0 (30-36) % RDW 15.9 H 15.6 H (11.6-14.8) % Plt Count 320 299 (150-400) X10^3/uL Neut % (Auto) 75.3 H 71.4 (50-75) % Lymph % (Auto) 13.3 L 15.0 L (25-40) % [place] % (Auto) 10.0 11.0 (3-14) % Eos % (Auto) 0.9 L 1.5 L (2-4) % Baso % (Auto) 0.5 1.1 (0-2) % Neut # (Auto) 7600 H 5600 (2848-2381) /uL Lymph # (Auto) 1300 1200 (3002-1743) /uL [place] # (Auto) 1000 H 900 (0-900) /uL Eos # (Auto) 100 100 (0-450) /uL Baso # (Auto) 100 100 (0-100) /uL PT 17.7 H (9.4-12.5) SECONDS INR 1.5 H (0.9-1.3) APTT 49 H (25.1-36.5) SECONDS Sodium 131 L 131 L (137-145) mmol/L Potassium 3.7 3.1 L (3.4-5.1) mmol/L Chloride 95 L 96 L (98-107) mmol/L Carbon Dioxide 27 31 (22-32) mmol/L BUN 61 H 51 H (9-20) mg/dL Creatinine 1.81 H 1.27 H (0.66-1.25) mg/dL Estimated GFR 36 L 55 L (>60) mL/min BUN/Creatinine Ratio 33.7 H 40.2 H (6-22) Glucose 179 H 106 (80-110) mg/dL Lactate 2.2 H 1.4 (0.7-2.1) mmol/L Calcium 8.6 8.5 (8.4-10.2) mg/dL Total Bilirubin 0.6 0.7 (0.2-1.3) mg/dL AST 36 33 (17-59) IU/L ALT 38 35 (<50) IU/L Alkaline Phosphatase 142 H 137 H (38-126) U/L Total Creatine Kinase 97 (55-170) U/L Troponin I 0.033 0.028 (0.01-0.034) ng/mL NT-Pro-B Natriuret Pep 2090 H 1930 H (<450) pg/mL Total Protein 6.9 6.5 (6.3-8.2) g/dL Albumin 3.2 L 2.8 L (3.5-5.0) g/dL Globulin 3.7 3.7 (1.7-4.1) g/dL Albumin/Globulin Ratio 0.9 L 0.8 L (1.0-2.8) Lipase 83 (23-300) U/L Procalcitonin 0.139 (<0.5) ng/mL Imaging Data Chest x-ray: Radiologist's Impression: PROCEDURE: XR CHEST 1V INDICATIONS: chest pain TECHNIQUE: One view of the chest was acquired. COMPARISON: [facility], CR, XR CHEST 1V, 06/18/2021, 17:23. FINDINGS: Surgical changes and devices: Left chest wall AICD device with single cardiac lead Lungs and pleura: No pneumothorax. Moderate right pleural effusion with subjacent atelectasis. Left lung is clear.. Mediastinum: Mediastinal contours appear normal. Heart size is borderline enlarged. Bones and chest wall: No suspicious bony lesions. Overlying soft tissues appear unremarkable. IMPRESSION: Moderate right pleural effusion with subjacent atelectasis. Approved by: Emma Crawley M.D.,Ph.D. on 03/25/2024 at 11:46 CT scan - head: Radiologist's Impression: PROCEDURE: CT HEAD/BRAIN WO CON INDICATIONS: fall on thinners TECHNIQUE: Noncontrast 4.5 mm thick angled axial sections acquired from the foramen magnum to the vertex, with coronal and sagittal reformats. For radiation dose reduction, the following was used: automated exposure control, adjustment of mA and/or kV according to patient size. COMPARISON: [facility], CT, CT HEAD/BRAIN WO CON, 06/18/2021, 15:38. FINDINGS: Image quality: Diagnostic. CSF spaces: Basal cisterns are patent. No extra-axial fluid collections. The ventricles are symmetric in size and shape. Brain: No intracranial bleeds or masses. There is cerebral volume loss for age, with resultant ventricular and sulcal prominence. There are periventricular and deep white matter chronic small vessel ischemic changes. There is intracranial internal carotid artery atherosclerosis. 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 Skull and face: Calvarium and visualized facial bones appear intact, without suspicious lesions. Left frontal scalp hematoma. Bilateral lens replacement. Sinuses: Visualized sinuses and mastoids are clear. IMPRESSION: No acute intracranial pathology. Left frontal scalp hematoma without associated acute craniofacial abnormality. Chronic right infarcts. Approved by: Emma Crawley M.D.,Ph.D. on 03/25/2024 at 12:31 CT - cervical spine: Radiologist's Impression: PROCEDURE: CT CERVICAL SPINE WO CON INDICATIONS: fall TECHNIQUE: Noncontrast 3 mm thick sections acquired from the skull base to the T4 level. Sagittal and coronal reformats were then constructed. For radiation dose reduction, the following was used: automated exposure control, adjustment of mA and/or kV according to patient size. COMPARISON: None. FINDINGS: Image quality: Diagnostic. Bones: No fractures or dislocations. Visualized superior ribs are intact. Multilevel degenerative changes. Soft tissues: Prevertebral soft tissues are normal in thickness. No paravertebral hematomas. No apical pneumothoraces. Moderate right pleural effusion with subjacent atelectasis. IMPRESSION: No acute displaced fracture or traumatic subluxation. Moderate right pleural effusion. Approved by: Emma Crawley M.D.,Ph.D. 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 Pertinent findings: BNP 2000 previously 1100, no significant leukocytosis mild anemia stable CKD WBC 10 0.1, hemoglobin 10.3 hematocrit 30.5 previously 13.4/39.0, platelets 320, sodium 131 potassium 3.7 chloride 95 carbon dioxide 27 BUN 61 creatinine 1.8 glucose 179 lactate 2.2 bilirubin 0.6 AST 36 ALT 38 alk-phos 142 troponin 0.03 procalcitonin 0.139 Independently reviewed EKG as above: Irregular rhythm PVC noted not regular pacer spikes Imaging studies independently reviewed: Chest x-ray does show right pleural effusion and cardiomegaly CT head no intracranial hemorrhage left front scalp hematoma Cervical spine CT no displaced fracture Consultations: 1330 Dr. Guerrier, [facility] cardiology updated on patient's symptoms test results has reviewed notes. Reports that patient does have an EF about 35% moderate MR. Recommends admitting here diuresing gently and monitoring blood pressure. Sounds like multiple chronic issues chronic AFib chronic kidney disease chronic cardiomyopathy with a defibrillator. 5225-Dr. Muñiz updated patient's symptoms test results recommend that patient go to higher level of care with Cardiology Treatments: Lasix Re-evaluations: Discussion: Patient 89-year-old male presents today found down with some mild hypotension. This does sound like this has happened they sounds like they are adjusting some medications. He does appear to be fluid overloaded he is significant pleural effusion on the right side he is not requiring continuous oxygen he does have lower extremity edema though the nephew reports that it has improved. He does have some mild erythema in his lower legs as well although I do not think that this is cellulitis or sepsis related I do suspect it is from edema no antibiotics indicated at this time. Pacemaker was interrogated no obvious shocks or arrhythmias are found or interpreted Patient's nephew reports that he is a full code polst form to confirm signed out to Dr. Mosquera Assumed care of patient from Dr. Dickinson 8.31.21 @ 1407: Patient to be transferred to [facility] for CHF exacerbation, awaiting call back from transfer center for accepting bed. Had discussion with patient's power of agricultural sales representative, updated pulsed form to limited intervention, patient now DNR DNI Had discussion with Dr. Wiseman, at [facility] who accepts the admission/transfer Dr Gonzalez: Received turned over. Patient has been stable overnight. Patient has been accepted at [facility] however there was no bed availability. Patient continues to be stable for transport. 03/26/2024 Dr. Osman: Patient signed out to myself. Reported stable overnight. Patient pressure has been persistently 90s to 100s systolic throughout his stay and he has been mildly tachycardic. Patient has received Lasix yesterday afternoon. Was expected to transfer overnight but there was a communication issue and patient continues to board until bed availability [facility]. Plan to repeat labs, restart patient's medications with recommendations from Cardiology for gentle diuresis. White count of 7.8 hemoglobin of 9.9 with platelets of 299 stable from yesterday. Sodium is 131 consistent with prior yesterday was 134 on 02/22/2024 potassium is little bit low at 3.1 was replaced orally, chloride 96 BUN 51 creatinine of 1.27, glucose is 106 with normal LFTs, BNP is 19 30 slightly down from prior. Echo was ordered. Help patient's BP meds as he was somewhat hypotensive. 1441: Patient's son arrived asked about not transferring versus discharge home. Had not received echo yet. Spoke with patient he would like to continue with treatment and evaluation and potential transfer at this point. Patient appears to still be his decision maker so will continue with his request and echo was in the room. Spoke with patient's son, echo returned EF is 35-40%, severe hypokinesis throughout reviewed findings with the son. Patient has been a little bit tachycardic little bit slightly worse he had had helped metoprolol held today. Blood pressures improved but has been intermittently hypotensive he is on room air currently. Discussed with son did could discharge home since he is DNR DNI if they do not wish for additional interventions and would not want any sort of cardiac involvement or cardiology evaluation which was the plan yesterday. After discussion with the son they would like to continue with plan for transfer. If patient is still here in the morning we will re-evaluate. Patient's evening meds were ordered, did hold some of his blood pressure medications but did restart his metoprolol continuing his anticoagulation, diuretics. Patient signed out to Dr. James while awaiting potential transfer. Patient has been accepted at since yesterday but has been awaiting bed assignment. <Alfredo Mosquera, - Last Filed: 03/25/24 16:19> Differential Diagnosis Differential diagnosis: Likely syncope and other (Electrolyte abnormality, ACS, CHF) Condition is:: Well Controlled Medical Records Attestation: I reviewed the patient's medical records. Lab Data Attestation: I reviewed the patient's lab results. Labs: Lab Results 03/25/24 03/25/24 03/26/24 Range/Units 11:00 13:29 08:55 WBC 10.1 7.8 (4.5-11.0) X10^3/uL RBC 3.17 L 3.06 L (4.5-5.9) X10^6/uL Hgb 10.3 L 9.9 L (13.5-17.5) g/dL Hct 30.5 L 29.1 L (41-53) % MCV 96.1 95.1 (80-100) fL MCH 32.4 32.3 (26-34) PG MCHC 33.7 34.0 (30-36) % RDW 15.9 H 15.6 H (11.6-14.8) % Plt Count 320 299 (150-400) X10^3/uL Neut % (Auto) 75.3 H 71.4 (50-75) % Lymph % (Auto) 13.3 L 15.0 L (25-40) % [place] % (Auto) 10.0 11.0 (3-14) % Eos % (Auto) 0.9 L 1.5 L (2-4) % Baso % (Auto) 0.5 1.1 (0-2) % Neut # (Auto) 7600 H 5600 (2773-3249) /uL Lymph # (Auto) 1300 1200 (1656-9509) /uL [place] # (Auto) 1000 H 900 (0-900) /uL Eos # (Auto) 100 100 (0-450) /uL Baso # (Auto) 100 100 (0-100) /uL PT 17.7 H (9.4-12.5) SECONDS INR 1.5 H (0.9-1.3) APTT 49 H (25.1-36.5) SECONDS Sodium 131 L 131 L (137-145) mmol/L Potassium 3.7 3.1 L (3.4-5.1) mmol/L Chloride 95 L 96 L (98-107) mmol/L Carbon Dioxide 27 31 (22-32) mmol/L BUN 61 H 51 H (9-20) mg/dL Creatinine 1.81 H 1.27 H (0.66-1.25) mg/dL Estimated GFR 36 L 55 L (>60) mL/min BUN/Creatinine Ratio 33.7 H 40.2 H (6-22) Glucose 179 H 106 (80-110) mg/dL Lactate 2.2 H 1.4 (0.7-2.1) mmol/L Calcium 8.6 8.5 (8.4-10.2) mg/dL Total Bilirubin 0.6 0.7 (0.2-1.3) mg/dL AST 36 33 (17-59) IU/L ALT 38 35 (<50) IU/L Alkaline Phosphatase 142 H 137 H (38-126) U/L Total Creatine Kinase 97 (55-170) U/L Troponin I 0.033 0.028 (0.01-0.034) ng/mL NT-Pro-B Natriuret Pep 2090 H 1930 H (<450) pg/mL Total Protein 6.9 6.5 (6.3-8.2) g/dL Albumin 3.2 L 2.8 L (3.5-5.0) g/dL Globulin 3.7 3.7 (1.7-4.1) g/dL Albumin/Globulin Ratio 0.9 L 0.8 L (1.0-2.8) Lipase 83 (23-300) U/L Procalcitonin 0.139 (<0.5) ng/mL MDM Narrative Medical decision making narrative: MDM CC: Fall Complicating co-morbidities: Chronic kidney disease 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 Pertinent findings: BNP 2000 previously 1100, no significant leukocytosis mild anemia stable CKD WBC 10 0.1, hemoglobin 10.3 hematocrit 30.5 previously 13.4/39.0, platelets 320, sodium 131 potassium 3.7 chloride 95 carbon dioxide 27 BUN 61 creatinine 1.8 glucose 179 lactate 2.2 bilirubin 0.6 AST 36 ALT 38 alk-phos 142 troponin 0.03 procalcitonin 0.139 Independently reviewed EKG as above: Irregular rhythm PVC noted not regular pacer spikes Imaging studies independently reviewed: Chest x-ray does show right pleural effusion and cardiomegaly CT head no intracranial hemorrhage left front scalp hematoma Cervical spine CT no displaced fracture Consultations: 1330 Dr. Guerrier, [facility] cardiology updated on patient's symptoms test results has reviewed notes. Reports that patient does have an EF about 35% moderate MR. Recommends admitting here diuresing gently and monitoring blood pressure. Sounds like multiple chronic issues chronic AFib chronic kidney disease chronic cardiomyopathy with a defibrillator. 1355-Dr. Muñiz updated patient's symptoms test results recommend that patient go to higher level of care with Cardiology Treatments: Lasix Re-evaluations: Discussion: Patient 89-year-old male presents today found down with some mild hypotension. This does sound like this has happened they sounds like they are adjusting some medications. He does appear to be fluid overloaded he is significant pleural effusion on the right side he is not requiring continuous oxygen he does have lower extremity edema though the nephew reports that it has improved. He does have some mild erythema in his lower legs as well although I do not think that this is cellulitis or sepsis related I do suspect it is from edema no antibiotics indicated at this time. Pacemaker was interrogated no obvious shocks or arrhythmias are found or interpreted Patient's nephew reports that he is a full code polst form to confirm signed out to Dr. Mosquera Assumed care of patient from Dr. Dickinson 8.31.21 @ 1407: Patient to be transferred to [facility] for CHF exacerbation, awaiting call back from transfer center for accepting bed. Had discussion with patient's power of agricultural sales representative, updated pulsed form to limited intervention, patient now DNR DNI Had discussion with Dr. Wiseman, at [facility] who accepts the admission/transfer <Amador Gonzalez, - Last Filed: 03/26/24 06:19> Lab Data Labs: Lab Results 03/25/24 03/25/24 03/26/24 Range/Units 11:00 13:29 08:55 WBC 10.1 7.8 (4.5-11.0) X10^3/uL RBC 3.17 L 3.06 L (4.5-5.9) X10^6/uL Hgb 10.3 L 9.9 L (13.5-17.5) g/dL Hct 30.5 L 29.1 L (41-53) % MCV 96.1 95.1 (80-100) fL MCH 32.4 32.3 (26-34) PG MCHC 33.7 34.0 (30-36) % RDW 15.9 H 15.6 H (11.6-14.8) % Plt Count 320 299 (150-400) X10^3/uL Neut % (Auto) 75.3 H 71.4 (50-75) % Lymph % (Auto) 13.3 L 15.0 L (25-40) % [place] % (Auto) 10.0 11.0 (3-14) % Eos % (Auto) 0.9 L 1.5 L (2-4) % Baso % (Auto) 0.5 1.1 (0-2) % Neut # (Auto) 7600 H 5600 (5497-7906) /uL Lymph # (Auto) 1300 1200 (3153-2601) /uL [place] # (Auto) 1000 H 900 (0-900) /uL Eos # (Auto) 100 100 (0-450) /uL Baso # (Auto) 100 100 (0-100) /uL PT 17.7 H (9.4-12.5) SECONDS INR 1.5 H (0.9-1.3) APTT 49 H (25.1-36.5) SECONDS Sodium 131 L 131 L (137-145) mmol/L Potassium 3.7 3.1 L (3.4-5.1) mmol/L Chloride 95 L 96 L (98-107) mmol/L Carbon Dioxide 27 31 (22-32) mmol/L BUN 61 H 51 H (9-20) mg/dL Creatinine 1.81 H 1.27 H (0.66-1.25) mg/dL Estimated GFR 36 L 55 L (>60) mL/min BUN/Creatinine Ratio 33.7 H 40.2 H (6-22) Glucose 179 H 106 (80-110) mg/dL Lactate 2.2 H 1.4 (0.7-2.1) mmol/L Calcium 8.6 8.5 (8.4-10.2) mg/dL Total Bilirubin 0.6 0.7 (0.2-1.3) mg/dL AST 36 33 (17-59) IU/L ALT 38 35 (<50) IU/L Alkaline Phosphatase 142 H 137 H (38-126) U/L Total Creatine Kinase 97 (55-170) U/L Troponin I 0.033 0.028 (0.01-0.034) ng/mL NT-Pro-B Natriuret Pep 2090 H 1930 H (<450) pg/mL Total Protein 6.9 6.5 (6.3-8.2) g/dL Albumin 3.2 L 2.8 L (3.5-5.0) g/dL Globulin 3.7 3.7 (1.7-4.1) g/dL Albumin/Globulin Ratio 0.9 L 0.8 L (1.0-2.8) Lipase 83 (23-300) U/L Procalcitonin 0.139 (<0.5) ng/mL MDM Narrative Medical decision making narrative: MDM CC: Fall Complicating co-morbidities: Chronic kidney disease 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 Pertinent findings: BNP 2000 previously 1100, no significant leukocytosis mild anemia stable CKD WBC 10 0.1, hemoglobin 10.3 hematocrit 30.5 previously 13.4/39.0, platelets 320, sodium 131 potassium 3.7 chloride 95 carbon dioxide 27 BUN 61 creatinine 1.8 glucose 179 lactate 2.2 bilirubin 0.6 AST 36 ALT 38 alk-phos 142 troponin 0.03 procalcitonin 0.139 Independently reviewed EKG as above: Irregular rhythm PVC noted not regular pacer spikes Imaging studies independently reviewed: Chest x-ray does show right pleural effusion and cardiomegaly CT head no intracranial hemorrhage left front scalp hematoma Cervical spine CT no displaced fracture Consultations: 1330 Dr. Guerrier, [facility] cardiology updated on patient's symptoms test results has reviewed notes. Reports that patient does have an EF about 35% moderate MR. Recommends admitting here diuresing gently and monitoring blood pressure. Sounds like multiple chronic issues chronic AFib chronic kidney disease chronic cardiomyopathy with a defibrillator. 4585-Dr. Muñiz updated patient's symptoms test results recommend that patient go to higher level of care with Cardiology Treatments: Lasix Re-evaluations: Discussion: Patient 89-year-old male presents today found down with some mild hypotension. This does sound like this has happened they sounds like they are adjusting some medications. He does appear to be fluid overloaded he is significant pleural effusion on the right side he is not requiring continuous oxygen he does have lower extremity edema though the nephew reports that it has improved. He does have some mild erythema in his lower legs as well although I do not think that this is cellulitis or sepsis related I do suspect it is from edema no antibiotics indicated at this time. Pacemaker was interrogated no obvious shocks or arrhythmias are found or interpreted Patient's nephew reports that he is a full code polst form to confirm signed out to Dr. Mosquera Assumed care of patient from Dr. Dickinson 8.31.21 @ 1407: Patient to be transferred to [facility] for CHF exacerbation, awaiting call back from transfer center for accepting bed. Had discussion with patient's power of agricultural sales representative, updated pulsed form to limited intervention, patient now DNR DNI Had discussion with Dr. Wiseman, at [facility] who accepts the admission/transfer Dr Gonzalez: Received turned over. Patient has been stable overnight. Patient has been accepted at [facility] however there was no bed availability. Patient continues to be stable for transport. <Shruthi Osman, DO - Last Filed: 03/27/24 07:04> Lab Data Labs: Lab Results 03/25/24 03/25/24 03/26/24 Range/Units 11:00 13:29 08:55 WBC 10.1 7.8 (4.5-11.0) X10^3/uL RBC 3.17 L 3.06 L (4.5-5.9) X10^6/uL Hgb 10.3 L 9.9 L (13.5-17.5) g/dL Hct 30.5 L 29.1 L (41-53) % MCV 96.1 95.1 (80-100) fL MCH 32.4 32.3 (26-34) PG MCHC 33.7 34.0 (30-36) % RDW 15.9 H 15.6 H (11.6-14.8) % Plt Count 320 299 (150-400) X10^3/uL Neut % (Auto) 75.3 H 71.4 (50-75) % Lymph % (Auto) 13.3 L 15.0 L (25-40) % [place] % (Auto) 10.0 11.0 (3-14) % Eos % (Auto) 0.9 L 1.5 L (2-4) % Baso % (Auto) 0.5 1.1 (0-2) % Neut # (Auto) 7600 H 5600 (4632-0052) /uL Lymph # (Auto) 1300 1200 (4976-1436) /uL [place] # (Auto) 1000 H 900 (0-900) /uL Eos # (Auto) 100 100 (0-450) /uL Baso # (Auto) 100 100 (0-100) /uL PT 17.7 H (9.4-12.5) SECONDS INR 1.5 H (0.9-1.3) APTT 49 H (25.1-36.5) SECONDS Sodium 131 L 131 L (137-145) mmol/L Potassium 3.7 3.1 L (3.4-5.1) mmol/L Chloride 95 L 96 L (98-107) mmol/L Carbon Dioxide 27 31 (22-32) mmol/L BUN 61 H 51 H (9-20) mg/dL Creatinine 1.81 H 1.27 H (0.66-1.25) mg/dL Estimated GFR 36 L 55 L (>60) mL/min BUN/Creatinine Ratio 33.7 H 40.2 H (6-22) Glucose 179 H 106 (80-110) mg/dL Lactate 2.2 H 1.4 (0.7-2.1) mmol/L Calcium 8.6 8.5 (8.4-10.2) mg/dL Total Bilirubin 0.6 0.7 (0.2-1.3) mg/dL AST 36 33 (17-59) IU/L ALT 38 35 (<50) IU/L Alkaline Phosphatase 142 H 137 H (38-126) U/L Total Creatine Kinase 97 (55-170) U/L Troponin I 0.033 0.028 (0.01-0.034) ng/mL NT-Pro-B Natriuret Pep 2090 H 1930 H (<450) pg/mL Total Protein 6.9 6.5 (6.3-8.2) g/dL Albumin 3.2 L 2.8 L (3.5-5.0) g/dL Globulin 3.7 3.7 (1.7-4.1) g/dL Albumin/Globulin Ratio 0.9 L 0.8 L (1.0-2.8) Lipase 83 (23-300) U/L Procalcitonin 0.139 (<0.5) ng/mL MDM Narrative Medical decision making narrative: MDM CC: Fall Complicating co-morbidities: Chronic kidney disease 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 Pertinent findings: BNP 2000 previously 1100, no significant leukocytosis mild anemia stable CKD WBC 10 0.1, hemoglobin 10.3 hematocrit 30.5 previously 13.4/39.0, platelets 320, sodium 131 potassium 3.7 chloride 95 carbon dioxide 27 BUN 61 creatinine 1.8 glucose 179 lactate 2.2 bilirubin 0.6 AST 36 ALT 38 alk-phos 142 troponin 0.03 procalcitonin 0.139 Independently reviewed EKG as above: Irregular rhythm PVC noted not regular pacer spikes Imaging studies independently reviewed: Chest x-ray does show right pleural effusion and cardiomegaly CT head no intracranial hemorrhage left front scalp hematoma Cervical spine CT no displaced fracture Consultations: 1330 Dr. Guerrier, [facility] cardiology updated on patient's symptoms test results has reviewed notes. Reports that patient does have an EF about 35% moderate MRVentura Recommends admitting here diuresing gently and monitoring blood pressure. Sounds like multiple chronic issues chronic AFib chronic kidney disease chronic cardiomyopathy with a defibrillator. 1355-Dr. Muñiz updated patient's symptoms test results recommend that patient go to higher level of care with Cardiology Treatments: Lasix Re-evaluations: Discussion: Patient 89-year-old male presents today found down with some mild hypotension. This does sound like this has happened they sounds like they are adjusting some medications. He does appear to be fluid overloaded he is significant pleural effusion on the right side he is not requiring continuous oxygen he does have lower extremity edema though the nephew reports that it has improved. He does have some mild erythema in his lower legs as well although I do not think that this is cellulitis or sepsis related I do suspect it is from edema no antibiotics indicated at this time. Pacemaker was interrogated no obvious shocks or arrhythmias are found or interpreted Patient's nephew reports that he is a full code polst form to confirm signed out to Dr. Mosquera Assumed care of patient from Dr. Dickinson 8.31.21 @ 7812: Patient to be transferred to [facility] for CHF exacerbation, awaiting call back from transfer center for accepting bed. Had discussion with patient's power of agricultural sales representative, updated pulsed form to limited intervention, patient now DNR DNI Had discussion with Dr. Wiseman, at [facility] who accepts the admission/transfer Dr Gonzalez: Received turned over. Patient has been stable overnight. Patient has been accepted at [facility] however there was no bed availability. Patient continues to be stable for transport. 03/26/2024 Dr. Osman: Patient signed out to myself. Reported stable overnight. Patient pressure has been persistently 90s to 100s systolic throughout his stay and he has been mildly tachycardic. Patient has received Lasix yesterday afternoon. Was expected to transfer overnight but there was a communication issue and patient continues to board until bed availability [facility]. Plan to repeat labs, restart patient's medications with recommendations from Cardiology for gentle diuresis. White count of 7.8 hemoglobin of 9.9 with platelets of 299 stable from yesterday. Sodium is 131 consistent with prior yesterday was 134 on 02/22/2024 potassium is little bit low at 3.1 was replaced orally, chloride 96 BUN 51 creatinine of 1.27, glucose is 106 with normal LFTs, BNP is 19 30 slightly down from prior. Echo was ordered. Help patient's BP meds as he was somewhat hypotensive. 1441: Patient's son arrived asked about not transferring versus discharge home. Had not received echo yet. Spoke with patient he would like to continue with treatment and evaluation and potential transfer at this point. Patient appears to still be his decision maker so will continue with his request and echo was in the room. Spoke with patient's son, echo returned EF is 35-40%, severe hypokinesis throughout reviewed findings with the son. Patient has been a little bit tachycardic little bit slightly worse he had had helped metoprolol held today. Blood pressures improved but has been intermittently hypotensive he is on room air currently. Discussed with son did could discharge home since he is DNR DNI if they do not wish for additional interventions and would not want any sort of cardiac involvement or cardiology evaluation which was the plan yesterday. After discussion with the son they would like to continue with plan for transfer. If patient is still here in the morning we will re-evaluate. Patient's evening meds were ordered, did hold some of his blood pressure medications but did restart his metoprolol continuing his anticoagulation, diuretics. Patient signed out to Dr. James while awaiting potential transfer. Patient has been accepted at since yesterday but has been awaiting bed assignment. Discharge Plan Departure Patient Disposition: [facility] Clinical Impression: CHF exacerbation Qualifiers: Heart failure type: unspecified Qualified Code(s): I50.9 - Heart failure, unspecified Prescriptions: No Action multivitamin Tablet 1 tab PO DAILY Alvesco 160 mcg/actuation HFA aerosol inhaler 1 puff inhalation BID Qty: 12.2 11RF levothyroxine 88 mcg tablet 88 mcg PO DAILY Qty: 90 3RF Rx Instructions: stop 75 mcg dose finasteride 5 mg tablet 5 mg PO DAILY midodrine 2.5 mg tablet 5 mg PO BID spironolactone 25 mg tablet 25 mg PO DAILY atorvastatin 20 mg tablet 20 mg PO DAILY aspirin 81 mg tablet,chewable 1 tab PO DAILY docusate sodium 100 mg capsule 100 mg PO BID albuterol sulfate 90 mcg/actuation HFA aerosol inhaler 2 puff inhalation Q4-6H PRN (Reason: shortness of breath) (DME) Disabled parking permit See Rx Instructions .ROUTE .MEDSUPPLY Qty: 1 0RF Rx Instructions: I find this patient to be medically disabled and qualified for disabled parking as indicated, and signed, on the accompanying disabled parking application for individuals. torsemide 100 mg tablet 100 mg PO DAILY metolazone 2.5 mg tablet 2.5 mg PO DAILY ipratropium-albuterol [DuoNeb] 0.5 mg-3 mg(2.5 mg base)/3 mL Solution For Nebulization 1 unit Q4HR PRN (Reason: sob) potassium chloride 20 mEq tablet,ER particles/crystals 20 meq PO BID losartan 25 mg tablet 12.5 mg PO DAILY metoprolol succinate 25 mg tablet extended release 24 hr 12.5 mg PO DAILY dabigatran etexilate [Pradaxa] 150 mg Capsule 150 mg PO BID Referrals: She Adkins DO [Primary Care Provider] -
[2024-03-25 11:37] LABS: Add Manual Diff / Slide Review NO; Basophils Absolute Auto 100 /uL (0-100); Basophils Percent Auto 0.5 % (0-2); Eosinophils Absolute Auto 100 /uL (0-450); Eosinophils Percent Auto 0.9 % (2-4); Hematocrit 30.5 % (41-53); Hemoglobin 10.3 g/dL (13.5-17.5); Lymphocytes Absolute Auto 1300 /uL (1100-4500); Lymphocytes Percent Auto 13.3 % (25-40); Mean Corpuscular HGB Conc 33.7 % (30-36); Mean Corpuscular Hemoglobin 32.4 PG (26-34); Mean Corpuscular Volume 96.1 fL (80-100); Monocytes Absolute Auto 1000 /uL (0-900); Neutrophils Absolute Auto 7600 /uL (1500-7000); Neutrophils Percent Auto 75.3 % (50-75); Platelet Count 320 X10^3/uL (150-400); Red Blood Cell Count 3.17 X10^6/uL (4.5-5.9); Red Cell Distribution Width 15.9 % (11.6-14.8); White Blood Cell Count 10.1 X10^3/uL (4.5-11.0)
[2024-03-25 11:44] LABS: INR 1.5 (0.9-1.3); Prothrombin Time 17.7 SECONDS (9.4-12.5)
[2024-03-25 11:47] LABS: Lactate (Lactic Acid) 2.2 mmol/L (0.7-2.1); PTT Partial Thromboplastin Tim 49 SECONDS (25.1-36.5)
[2024-03-25 11:48] LABS: Alanine Aminotransferase 38 IU/L (<50); Albumin 3.2 g/dL (3.5-5.0); Albumin Globulin Ratio 0.9 (1.0-2.8); Alkaline Phosphatase 142 U/L (38-126); Aspartate Aminotransferase 36 IU/L (17-59); BUN Creatinine Ratio 33.7 (6-22); Bilirubin Total 0.6 mg/dL (0.2-1.3); Blood Urea Nitrogen 61 mg/dL (9-20); Calcium 8.6 mg/dL (8.4-10.2); Carbon Dioxide 27 mmol/L (22-32); Chloride 95 mmol/L (98-107); Creatine Kinase 97 U/L (55-170); Estimated Glomerular Filt Rate 36 mL/min (>60); Globulin 3.7 g/dL (1.7-4.1); Glucose 179 mg/dL (80-110); HEMOLYSIS < 15 (0-50); Lipase 83 U/L (23-300); Potassium 3.7 mmol/L (3.4-5.1); Sodium 131 mmol/L (137-145); Total Protein 6.9 g/dL (6.3-8.2)
--- NOTE | 2024-03-25 11:55 | EKG_ITS ---
[place] [id number] [place] [id number] Test Date: 2024-03-25 Pat Name: Fred Walton Department: [facility] Room: Gender: Male Bologna Maker: : 1935 Requested By: Order Number: [id number] Reading MD: Rolando Blackman MD Measurements Intervals [place] Rate: 101 P: [place]: QRS: -29 QRSD: 122 T: 84 QT: 336 QTc: 435 Interpretive Statements Undetermined rhythm Inferior infarct , age undetermined Electronically Signed On 03-29-2024 8:33:31 PDT by Rolando Blackman MD
[2024-03-25 12:00] LABS: NT-proBNP (BNP-Adult 18+) 2090 pg/mL (<450); Troponin I 0.033 ng/mL (0.01-0.034)
[2024-03-25 12:06] LABS: Procalcitonin 0.139 ng/mL (<0.5)
--- NOTE | 2024-03-25 13:01 | PC.WOUNDPHOT ---
duoderm placed over patients open wound. provider aware.
[2024-03-25 13:10] LABS: Reflexed Lactate in 2 Hours Y
[2024-03-25 13:47] LABS: Lactate 2HR (Lactic Acid Rflx) 1.4 mmol/L (0.7-2.1)
[2024-03-25 13:59] LABS: Troponin I 0.028 ng/mL (0.01-0.034)
[2024-03-25] MEDS: FUROSEMIDE 40 MG/4 ML VIAL IV (14:34)
[2024-03-25] MEDS: LIDOCAINE 2% (GLYDO) 6 ML GEL TOP (14:35)
--- NOTE | 2024-03-25 17:34 | PC.NURSE ---
Pts BP lower than before,Dr Mosquera aware
[2024-03-26] VITALS (84 sets, daily range): BP systolic 90–134; BP diastolic 44–73; PULSE 93–147; RESP 15–34; TEMP 36.7; O2SAT 90–96; BMI 36.8
--- NOTE | 2024-03-26 06:39 | PC.NURSE ---
CONTROL CLERK REPAIRS note: Spoke to Pa at [facility] at 0638. Pa said they are going to be doing change of shift in about 20 minutes and they day shift nurse should be calling us shortly when day shift comes on. Thanked him for his help
--- NOTE | 2024-03-26 08:26 | DI.ECHO.S_ITS ---
[facility] : : [address] : : [place] : : [id number] : : Phone: [phone] Echocardiogram Report + + :Name: ISAURA CASE Study Date: 03/26/2024 Height: 73 in : :Hospital ReadingLocation: Weight: 279 lb : : Gender: Male BSA: 2.5 m2 : :: 1935 Age: 89 yrs BP: 114/54 mmHg: :Reason For Study: Congestive Heart Failure : :Ordering Physician: HARJIT, : :AILEEN Performed By: Phoebe Pineda : :Referring: AILEEN LOMBARDI : + + Interpretation Summary TDS even with Definity contrast. 1. LV contractiltiy is at least moderately compromised. EF of 35-40% with severe hypokinesis of the inferior and lateral segments. No obvious LVH. Unable to comment on diastolic function. 2. RV not well visualized. Contractility appears borderline in limited views. 3. LAE and LVE present. 4. No obvious valvular abnormalities. 5. No obvious intracardiac shunts. 6. Pacer wires noted in RA/RV. No intracardiac masses/thrombi. 7. No hemodynamically significant pericardial effusion. 8. Normal right sided filling pressures. Conclusion: Moderately compromised LV systolic function. Procedure: A two-dimensional transthoracic echocardiogram with color flow and Doppler was performed. The study quality was technically difficult. There is no prior echocardiogram noted for this patient. A contrast injection of Definity was performed to improve assessment of LV function. The heart rate ranged between 88-122 bpm during the study. Left Ventricle: The left ventricle is moderate-severely dilated. There is normal left ventricular wall thickness. The ejection fraction is estimated to be 35-40%. There are regional wall motion abnormalities as specified. Diastolic function could not be accurately assessed due to tachycardia. Right Ventricle: There is a pacemaker lead in the right ventricle. The right ventricle is grossly normal size. The right ventricle is not well visualized. Atria: The left atrium is severely dilated. The right atrium grossly appears normal in size. The interatrial septum is not well visualized. Mitral Valve: The mitral valve leaflets appear mildly thickened, but open well. There is no mitral regurgitation noted. Aortic Valve: The aortic valve opens well. No aortic regurgitation is present. Tricuspid Valve: The tricuspid valve leaflets are thin and pliable. There is a trace or physiologic amount of tricuspid regurgitation. The right ventricular systolic pressure is estimated to be at least 29 mmHg based on an estimated right atrial pressure of 8 mm Hg. Pulmonic Valve: The pulmonic valve is not well seen, but is grossly normal. There is trace pulmonic regurgitation. Great Vessels: The aortic root is normal size. The ascending aorta is normal in size. The aortic arch is normal in size. The IVC is of normal diameter and collapses less than 50% with a sniff. This suggests a right atrial pressure of 8 mm Hg. Pericardium/ Pleura There is no pericardial effusion. No obvious pleural effusion. MMode/2D Measurements & Calculations LVIDd: 6.6 cm LVOT diam: 2.4 cm LVIDs: 5.1 cm Ao root diam: 4.0 cm FS: 22.2 % asc Aorta Diam: 3.6 cm EPSS: 1.5 cm Ao Arch Diam (Prox Trans): 2.8 cm IVSd: 0.97 cm LVPWd: 1.0 cm LV desouza. diameter/BSA (cm/m^2): 2.7 LV sys. diameter/BSA (cm/m^2): 2.1 LA A2 area: 53.2 cm2 RA long axis: 6.4 cm LA A4 area: 58.8 cm2 RA area: 22.3 cm2 LA length (vol): 10.5 cm RA vol: 66.4 ml LA vol: 252.5 ml RA : 26.8 ml/m2 LA vol index: 101.9 ml/m2 IVC diam: 2.0 cm Doppler Measurements & Calculations Ao V2 max: 141.7 cm/sec LVOT Max Mick: 74.4 cm/sec Ao V2 mean: 107.9 cm/sec LV V1 max P.2 mmHg Ao max P.0 mmHg LV V1 VTI: 13.6 cm Ao mean P.1 mmHg KELSI(I,D): 2.2 cm2 Ao V2 VTI: 27.1 cm KELSI(V,D): 2.3 cm2 sev ratio: 0.50 KELSI indexed to BSA (cm^2/m^2): 0.90 TR max mick: 231.3 cm/sec SV(LVOT): 60.6 ml TR max P.4 mmHg PA V2 max: 90.6 cm/sec PA V2 mean: 60.9 cm/sec PA mean P.7 mmHg PA pr(Accel): 29.3 mmHg Reading Physician:
[2024-03-26 09:04] LABS: Add Manual Diff / Slide Review NO; Basophils Absolute Auto 100 /uL (0-100); Basophils Percent Auto 1.1 % (0-2); Eosinophils Absolute Auto 100 /uL (0-450); Eosinophils Percent Auto 1.5 % (2-4); Hematocrit 29.1 % (41-53); Hemoglobin 9.9 g/dL (13.5-17.5); Lymphocytes Absolute Auto 1200 /uL (1100-4500); Mean Corpuscular Hemoglobin 32.3 PG (26-34); Mean Corpuscular Volume 95.1 fL (80-100); Monocytes Absolute Auto 900 /uL (0-900); Neutrophils Absolute Auto 5600 /uL (1500-7000); Neutrophils Percent Auto 71.4 % (50-75); Platelet Count 299 X10^3/uL (150-400); Red Blood Cell Count 3.06 X10^6/uL (4.5-5.9); Red Cell Distribution Width 15.6 % (11.6-14.8); White Blood Cell Count 7.8 X10^3/uL (4.5-11.0)
[2024-03-26 09:22] LABS: Alanine Aminotransferase 35 IU/L (<50); Albumin 2.8 g/dL (3.5-5.0); Albumin Globulin Ratio 0.8 (1.0-2.8); Alkaline Phosphatase 137 U/L (38-126); Aspartate Aminotransferase 33 IU/L (17-59); BUN Creatinine Ratio 40.2 (6-22); Bilirubin Total 0.7 mg/dL (0.2-1.3); Blood Urea Nitrogen 51 mg/dL (9-20); Calcium 8.5 mg/dL (8.4-10.2); Carbon Dioxide 31 mmol/L (22-32); Chloride 96 mmol/L (98-107); Estimated Glomerular Filt Rate 55 mL/min (>60); Globulin 3.7 g/dL (1.7-4.1); Glucose 106 mg/dL (80-110); HEMOLYSIS < 15 (0-50); Potassium 3.1 mmol/L (3.4-5.1); Sodium 131 mmol/L (137-145); Total Protein 6.5 g/dL (6.3-8.2)
[2024-03-26 09:30] LABS: NT-proBNP (BNP-Adult 18+) 1930 pg/mL (<450)
[2024-03-26] MEDS: FINASTERIDE 5 MG TABLET PO (09:36)
[2024-03-26] MEDS: MIDODRINE HCL 5 MG TABLET 2.5 MG PO (09:36)
[2024-03-26] MEDS: DABIGATRAN 75 MG CAPSULE 150 MG PO (09:36)
[2024-03-26] MEDS: LEVOTHYROXINE 88 MCG TABLET PO (09:36)
[2024-03-26] MEDS: FUROSEMIDE 40 MG/4 ML VIAL IV (09:38)
[2024-03-26] MEDS: SPIRONOLACTONE 25 MG TABLET PO (09:39)
--- NOTE | 2024-03-26 10:19 | PC.NURSE ---
Assumed care of pt at 0900. Pt sitting up in bed with breakfast tray. A&Ox4. Crackles auscultated in upper left posterior lung. Denies sob, cp. No difficulty breathing noted. 900ml of clear yellow urine out in vines.
[2024-03-26] MEDS: POTASSIUM CHLORIDE 20 MEQ TAB 40 MEQ PO (11:12)
--- NOTE | 2024-03-26 14:25 | PC.NURSE ---
Pt called nurse to room. Very confused and can no longer tell you where he is. Pt alert and responsive, but restless and fidgety. Denies SOB, CP.
--- NOTE | 2024-03-26 14:40 | PC.NURSE ---
RN Vanessa checks on patient with this RN. Pt is alert to person but not to situation or place. Provider Jacqui is made aware. She goes to patient bedside. wet process technician arrives and is outside door. No new orders at this time.
[2024-03-26] MEDS: METOPROLOL ER 25 MG TABLET PO (18:22)
[2024-03-26] MEDS: ATORVASTATIN 20 MG TABLET PO (18:22)
--- NOTE | 2024-03-26 19:09 | PC.NURSE ---
Left message for Pt's nephew that pt was leaving @ 1900 for VM.
== END 2024-03-26 19:10 | disposition short-term general hospital (02) ==
PROVIDERS: Emergency Medicine; Emergency Provider Emergency Medicine; PCP Family Medicine
DX: I50.9 Heart failure, unspecified (principal); I95.9 Hypotension, unspecified; R07.9 Chest pain, unspecified; J90 Pleural effusion, not elsewhere classified; R00.0 Tachycardia, unspecified; S09.90XA Unspecified injury of head, initial encounter; W18.30XA Fall on same level, unspecified, initial encounter; Z79.01 Long term (current) use of anticoagulants; Z79.899 Other long term (current) drug therapy
CPT/HCPCS: 36415; 70450; 71045; 72125; 80053; 82550; 83605; 83690; 83880; 84145; 84484; 85025; 85610; 85730; 87040; 93005; 93306; 96374; 96376; 99285; J1940; Q9957